=== PATIENT | female | born 1980 | race Caucasian/White ===

== ENCOUNTER 2016-09-14 10:43 | Observation (INO) | payer BC, OTHER ==
[2016-09-14] MEDS ORDERED: SODIUM CHLORIDE 0.9% 1,000 ML IV STA ×2 (11:13)
[2016-09-14] MEDS ORDERED: HYDROmorphone 1 MG/ML 1 ML SYRINGE IVP STA ×2 (11:13→12:45)
[2016-09-14] MEDS ORDERED: METOCLOPRAMIDE 5 MG/ML 2 ML VIAL IVP STA (11:13)
--- NOTE | 2016-09-14 11:22 | ED ---
General Adult HPI - General Chief complaint: Shortness of Breath Stated complaint: LEIGHA, RT SIDE PAIN Time Seen by Provider: 09/14/16 10:58 Source: patient, family Mode of arrival: ambulatory Limitations: no limitations - History of Present Illness Initial comments: Chief complaint and history of present illness this is a 35-year-old female here with his significant other. The patient has been vomiting for 24-48 hours. Now has difficulty breathing with a deep breath increases pain especially to the right upper quadrant. No blood or coffee ground material noted in the vomit. No diarrhea. - Related Data Home Medications Medication Instructions Recorded Confirmed Gabapentin 600 mg PO BID 09/14/16 09/14/16 HYDROcodone/APAP 10-325MG [[place] 1 tab PO Q6H PRN 09/14/16 09/14/16 10-325] Allergies Allergy/AdvReac Type Severity Reaction Status Date / Time sulfamethoxazole Allergy Swelling Verified 09/14/16 12:27 [From Bactrim] trimethoprim [From Bactrim] Allergy Swelling Verified 09/14/16 12:27 Review of Systems ROS Statement: Those systems with pertinent positive or pertinent negative responses have been documented in the HPI. Review of systems no headache or visual acuity changes no sore throat. No neck pain. Patient reports that breathing increases pain. When she splints the right upper quadrant is less discomfort. Denies fever at home. She's had nausea and vomiting which increases the pain. No neuro deficits. All systems are reviewed. Past medical problems biliary colic starting 2 years ago with the . Asthma, GERD, RA, gastritis and ulcers. The patient's surgeries appendectomy. Family history no cancers. Patient has ALLERGIES to sulfa. She does smoke strongly encouraged to not smoke. Denies alcohol use ROS Other: All systems not noted in ROS Statement are negative. Past Medical History Past Medical History: Asthma, GERD/Reflux, Rheumatoid Arthritis (RA) Additional Past Medical History / Comment(s): gastritis, ulcers History of Any Multi-Drug Resistant Organisms: None Reported Past Surgical History: Appendectomy Past Psychological History: No Psychological Hx Reported Smoking Status: Current some day smoker Past Alcohol Use History: None Reported Past Drug Use History: Marijuana General Exam - General Exam Comments Initial Comments: General: The patient is awake and alert, complaining of right upper quadrant pain with breathing. Nausea vomiting for 24 hours. Vital signs temp 98.0 pulse 80 her story rate 18 pulse ox 96% room air blood pressure 158/85 Eye: Pupils are equal, round and reactive to light, extra-ocular movements are intact ; there is normal conjunctiva bilaterally. No signs of icterus. Ears, nose, mouth and throat: There are moist mucous membranes and no oral lesions. Neck: The neck is supple, there is no tenderness , no anterior cervical lymphadenopathy.. Cardiovascular: There is a regular rate and rhythm. No murmur, rub or gallop is appreciated. Respiratory: Lungs are clear to auscultation, respirations are non-labored, faint wheezes. Pain with deep breathing and coughing. Mainly to the right upper quadrant area. Palpation of the ribs does not increased discomfort but splinting the general area of the right upper quadrant does decrease the pain. No rash noted early shingles was discussed. Gastrointestinal: Right upper quadrant discomfort with palpation. There is no tenderness to palpation in the midline. There is no obvious deformity. No rashes noted. Musculoskeletal: Normal ROM, no tenderness, Neurological: No gross or focal neuro deficits. Skin: Skin is warm and dry and no rashes or lesions are noted. Early shingles discussed no rash noted Limitations: no limitations Course Vital Signs 09/14/16 09/14/16 09/14/16 10:47 11:54 12:59 Temperature 98.0 F 98.7 F Pulse Rate 80 63 65 Respiratory 18 20 22 Rate Blood Pressure 158/85 122/63 107/63 O2 Sat by Pulse 96 97 97 Oximetry 09/14/16 09/14/16 09/14/16 13:10 13:20 13:26 Temperature Pulse Rate 95 97 66 Respiratory 20 Rate Blood Pressure 103/55 O2 Sat by Pulse 100 Oximetry 09/14/16 09/14/16 09/14/16 14:26 16:00 17:03 Temperature Pulse Rate 85 76 Respiratory 18 20 Rate Blood Pressure 108/67 117/63 135/68 O2 Sat by Pulse 96 98 Oximetry 09/14/16 09/14/16 18:20 19:08 Temperature Pulse Rate 76 84 Respiratory 20 Rate Blood Pressure 115/63 O2 Sat by Pulse 98 Oximetry Medical Decision Making - Medical Decision Making Medical decision making; patient's white count is 10 hemoglobin 14 hematocrit of 43 the d-dimer normal at 0.45. Potassium 4.5. Urine clean no signs of infection. BUN 8 creatinine 0.69 the GFR greater than 60. Glucose 99.CK 76, MB 0.9 troponin less than 0.012. Chest x-ray is done AP and lateral view and reviewed by radiologist his impression is there is no focal airspace opacity, pleural effusion, or pneumothorax seen. The cardiac silhouette size within normal limits. The osseous structures are intact. Impression; no acute cardiopulmonary process. As read by Dr. Navarro x-ray of the abdomen was done and reviewed by radiologist his impression is nonobstructive bowel gas pattern. As read by Dr. Navarro Ultrasound of the right upper quadrant was done and reviewed by radiologist's his report his liver is enlarged. There is no evidence of stones upper limits of normal in size. Positive evidence for sonographic Royal sign. Combined duct appeared normal. Right kidney no evidence of hydronephrosis or mass. There is no ascites. Impression is borderline gallbladder wall thickening. Findings similar to prior exam. As read by Dr. Navarro [facility] the patient had on-again off-again shortness of breath she describes it may be is an anxiety type attack she was given an updraft for the wheezing she had 2 occasions and Ativan to help her relax. We did discuss chest pain shortness of breath biliary colic etc. The patient be admitted under Dr. Leavitt for further evaluation. - Lab Data Result diagrams: 09/14/16 11:35 09/14/16 11:35 Lab Results 09/14/16 09/14/16 09/14/16 Range/Units 11:35 11:35 11:35 WBC 10.2 (3.8-10.6) k/uL RBC 4.66 (3.80-5.40) m/uL Hgb 14.5 (11.4-16.0) gm/dL Hct 43.2 (34.0-46.0) % MCV 92.7 (80.0-100.0) fL MCH 31.1 (25.0-35.0) pg MCHC 33.5 (31.0-37.0) g/dL RDW 14.2 (11.5-15.5) % Plt Count 281 (150-450) k/uL Neutrophils % 78 % Lymphocytes % 12 % Monocytes % 3 % Eosinophils % 5 % Basophils % 0 % Neutrophils # 8.0 H (1.3-7.7) k/uL Lymphocytes # 1.2 (1.0-4.8) k/uL Monocytes # 0.3 (0-1.0) k/uL Eosinophils # 0.5 (0-0.7) k/uL Basophils # 0.0 (0-0.2) k/uL D-Dimer 0.45 (<0.60) mg/L FEU Sodium 141 (137-145) mmol/L Potassium 4.5 (3.5-5.1) mmol/L Chloride 106 (98-107) mmol/L Carbon Dioxide 23 (22-30) mmol/L Anion Gap 12 mmol/L BUN 8 (7-17) mg/dL Creatinine 0.69 (0.52-1.04) mg/dL Est GFR (MDRD) Af Amer >60 (>60 ml/min/1.73 sqM) Est GFR (MDRD) Non-Af >60 (>60 ml/min/1.73 sqM) Glucose 99 (74-99) mg/dL Calcium 9.6 (8.4-10.2) mg/dL Total Bilirubin 0.5 (0.2-1.3) mg/dL AST 14 (14-36) U/L ALT 23 (9-52) U/L Alkaline Phosphatase 138 H (38-126) U/L Total Creatine Kinase (30-135) U/L CK-MB (CK-2) (0.0-2.4) ng/mL CK-MB (CK-2) Rel Index Troponin I (0.000-0.034) ng/mL Total Protein 7.2 (6.3-8.2) g/dL Albumin 4.2 (3.5-5.0) g/dL Amylase (30-110) U/L Lipase (23-300) U/L Urine Color Urine Appearance (Clear) Urine pH (5.0-8.0) Ur Specific [place] (1.001-1.035) Urine Protein (Negative) Urine Glucose (UA) (Negative) Urine Ketones (Negative) Urine Blood (Negative) Urine Nitrite (Negative) Urine Bilirubin (Negative) Urine Urobilinogen (<2.0) mg/dL Ur Leukocyte Esterase (Negative) Urine RBC (0-5) /hpf Urine WBC (0-5) /hpf Ur Squamous Epith Cells (0-4) /hpf Urine Mucus (None) /hpf 09/14/16 09/14/16 09/14/16 Range/Units 11:35 11:35 11:35 WBC (3.8-10.6) k/uL RBC (3.80-5.40) m/uL Hgb (11.4-16.0) gm/dL Hct (34.0-46.0) % MCV (80.0-100.0) fL MCH (25.0-35.0) pg MCHC (31.0-37.0) g/dL RDW (11.5-15.5) % Plt Count (150-450) k/uL Neutrophils % % Lymphocytes % % Monocytes % % Eosinophils % % Basophils % % Neutrophils # (1.3-7.7) k/uL Lymphocytes # (1.0-4.8) k/uL Monocytes # (0-1.0) k/uL Eosinophils # (0-0.7) k/uL Basophils # (0-0.2) k/uL D-Dimer (<0.60) mg/L FEU Sodium (137-145) mmol/L Potassium (3.5-5.1) mmol/L Chloride (98-107) mmol/L Carbon Dioxide (22-30) mmol/L Anion Gap mmol/L BUN (7-17) mg/dL Creatinine (0.52-1.04) mg/dL Est GFR (MDRD) Af Amer (>60 ml/min/1.73 sqM) Est GFR (MDRD) Non-Af (>60 ml/min/1.73 sqM) Glucose (74-99) mg/dL Calcium (8.4-10.2) mg/dL Total Bilirubin (0.2-1.3) mg/dL AST (14-36) U/L ALT (9-52) U/L Alkaline Phosphatase (38-126) U/L Total Creatine Kinase 76 (30-135) U/L CK-MB (CK-2) 0.7 (0.0-2.4) ng/mL CK-MB (CK-2) Rel Index 0.9 Troponin I <0.012 (0.000-0.034) ng/mL Total Protein (6.3-8.2) g/dL Albumin (3.5-5.0) g/dL Amylase 36 (30-110) U/L Lipase 21 L (23-300) U/L Urine Color Yellow Urine Appearance Clear (Clear) Urine pH 7.5 (5.0-8.0) Ur Specific [place] 1.013 (1.001-1.035) Urine Protein Negative (Negative) Urine Glucose (UA) Negative (Negative) Urine Ketones 3+ H (Negative) Urine Blood Negative (Negative) Urine Nitrite Negative (Negative) Urine Bilirubin Negative (Negative) Urine Urobilinogen <2.0 (<2.0) mg/dL Ur Leukocyte Esterase Trace H (Negative) Urine RBC <1 (0-5) /hpf Urine WBC 1 (0-5) /hpf Ur Squamous Epith Cells 1 (0-4) /hpf Urine Mucus Rare H (None) /hpf Disposition Clinical Impression: Biliary colic, Asthma Disposition: ADMITTED IP TO THIS HOSP Condition: Fair Referrals: Junior Dudley MD [Primary Care Provider] - 1-2 days
[2016-09-14 11:54] LABS: Basophils % (A) 0 %; CH 30.7; CHCM 33.3; Eosinophils # (A) 0.5 k/uL (0-0.7); Eosinophils % (A) 5 %; HCT 43.2 % (34.0-46.0); HDW 2.32; HGB 14.5 gm/dL (11.4-16.0); Luc # (Auto) 0.18; Luc % (Auto) 2; Lymphocytes # (A) 1.2 k/uL (1.0-4.8); Lymphocytes % (A) 12 %; MCH 31.1 pg (25.0-35.0); MCHC 33.5 g/dL (31.0-37.0); MCV 92.7 fL (80.0-100.0); Mean Platelet Volume 7.6; Monocytes # (A) 0.3 k/uL (0-1.0); Monocytes % (A) 3 %; Neutrophils % (A) 78 %; RBC 4.66 m/uL (3.80-5.40); RDW 14.2 % (11.5-15.5); WBC 10.2 k/uL (3.8-10.6); WBC (Perox) 10.45
[2016-09-14 11:56] LABS: Appearance,Urine Clear (Clear); Bilirubin,Urine Negative (Negative); Glucose,Urine (UA) Negative (Negative); Ketones,Urine 3+ (Negative); Leukocyte Esterase,Urine Trace (Negative); Mucus,Urine Rare /hpf; Nitrite,Urine Negative (Negative); PH, Urine 7.5 (5.0-8.0); Particle Count 1691; Protein,Urine Negative (Negative); RBC,Urine <1 /hpf (0-5); Specific Gravity,Urine 1.013 (1.001-1.035); Squamous Epithelial Cell,Urine 1 /hpf (0-4); UA Billing (MACRO vs. MICRO) MICRO; Urobilinogen,Urine <2.0 mg/dL (<2.0); WBC,Urine 1 /hpf (0-5)
[2016-09-14 12:13] LABS: ALT 23 U/L (9-52); AST 14 U/L (14-36); Alkaline Phosphatase 138 U/L (38-126); Anion Gap 12 mmol/L; Blood Urea Nitrogen 8 mg/dL (7-17); Calcium 9.6 mg/dL (8.4-10.2); Carbon Dioxide 23 mmol/L (22-30); Chloride 106 mmol/L (98-107); Glucose 99 mg/dL (74-99); Non-African American GFR(MDRD) >60 (>60 ml/min/1.73 sqM); Potassium 4.5 mmol/L (3.5-5.1); Sodium 141 mmol/L (137-145); Total Bilirubin 0.5 mg/dL (0.2-1.3); Total Protein 7.2 g/dL (6.3-8.2)
--- NOTE | 2016-09-14 12:33 | XR ---
EXAMINATION TYPE: XR chest 2V DATE OF EXAM: 09/14/2016 COMPARISON: NONE HISTORY: Difficulty breathing, cough TECHNIQUE: Frontal and lateral views of the chest are obtained. FINDINGS: There is no focal air space opacity, pleural effusion, or pneumothorax seen. The cardiac silhouette size is within normal limits. The osseous structures are intact. IMPRESSION: No acute cardiopulmonary process.
[2016-09-14] MEDS ORDERED: ONDANSETRON 4 MG/2 ML VIAL IVP STA (12:45)
[2016-09-14] MEDS ORDERED: IPRATROPIUM-ALBUTEROL 3 ML NEB INHALATION STA ×3 (12:47→19:00)
[2016-09-14 12:54] LABS: Amylase 36 U/L (30-110)
--- NOTE | 2016-09-14 13:45 | XR ---
2 view abdomen HISTORY: Right upper quadrant pain 2 views of the abdomen on 3 images correlated to prior abdomen 07 July 2008 Lung bases are clear. There is a slight spinal curvature. No obstruction or pneumoperitoneum. Some re tained fecal debris present within the colon. There are surgical clips over the pelvis. IMPRESSION: Nonobstructive bowel gas pattern.
--- NOTE | 2016-09-14 16:22 | US ---
EXAMINATION TYPE: US abdomen limited DATE OF EXAM: 09/14/2016 COMPARISON: NONE CLINICAL HISTORY: right upper quadrant pain. RUQ pain x 2 days, nausea and vomiting EXAM MEASUREMENTS: Liver Length: 18.7 cm Gallbladder Wall: 0.3 cm CBD: 0.5 cm Right Kidney: 10.6 x 4.1 x 4.5 cm Pancreas: visualized portions appear wnl, head and tail obscured by overlying bowel content Liver: enlarged Gallbladder: no evidence of stones, upper limits of normal in size Evidence for sonographic Royal's sign: yes CBD: appears wnl Right Kidney: no evidence of hydronephrosis or mass There is no ascites. IMPRESSION: Borderline gallbladder wall thickening. Findings similar to prior exam.
[2016-09-14 18:46] LABS: Creatine Kinase 76 U/L (30-135)
[2016-09-14 18:59] LABS: Creatine Kinase MB 0.7 ng/mL (0.0-2.4); Troponin I <0.012 ng/mL (0.000-0.034)
[2016-09-14] MEDS ORDERED: LORazepam 2 MG/ML SYRINGE IV STA (19:07)
[2016-09-14] MEDS ORDERED: LORazepam 2 MG/ML SYRINGE IV PRN (19:27)
[2016-09-14] MEDS ORDERED: NALOXONE 0.4 MG/ML 1 ML VIAL IV PRN (19:27)
[2016-09-14] MEDS ORDERED: ACETAMINOPHEN TAB 325 MG TAB PO PRN (19:27)
[2016-09-14 20:52] VITALS: BMI 28.9
[2016-09-14] MEDS: HYDROmorphone 1 MG/ML 1 ML SYRINGE IV PRN (21:20)
[2016-09-14] MEDS: GABAPENTIN 300 MG CAP PO SCH (21:23)
[2016-09-14] MEDS: FAMOTIDINE 20 MG TAB PO SCH (21:23)
[2016-09-14] MEDS: SODIUM CHLORIDE 0.9% 1,000 ML IV SCH (21:24)
[2016-09-14 23:11] LABS: Creatine Kinase 61 U/L (30-135)
[2016-09-14 23:24] LABS: Troponin I <0.012 ng/mL (0.000-0.034)
[2016-09-15] MEDS: IPRATROPIUM-ALBUTEROL 3 ML NEB INHALATION PRN ×5 (00:12→23:26)
[2016-09-15] MEDS: HYDROmorphone 1 MG/ML 1 ML SYRINGE IV PRN ×5 (02:48→21:34)
[2016-09-15 04:43] LABS: Creatine Kinase 51 U/L (30-135)
[2016-09-15 04:56] LABS: Creatine Kinase MB 0.9 ng/mL (0.0-2.4); Troponin I <0.012 ng/mL (0.000-0.034)
[2016-09-15] MEDS: SODIUM CHLORIDE 0.9% 1,000 ML IV SCH ×2 (08:59→21:33)
[2016-09-15] MEDS: FAMOTIDINE 20 MG TAB PO SCH ×2 (08:59→21:34)
[2016-09-15] MEDS: GABAPENTIN 300 MG CAP PO SCH ×2 (08:59→21:33)
[2016-09-15] MEDS ORDERED: ONDANSETRON 4 MG/2 ML VIAL IVP PRN (13:05)
--- NOTE | 2016-09-15 13:55 | P.HPIM ---
History of Present Illness H&P Date: 09/15/16 Chief Complaint: Shortness of breath This is a 35-year-old female patient being evaluated and examined today on the sixth floor. Patient came into the emergency room with persistent increasing shortness of breath over the last 24-48 hours she also has had some abdominal pain with nausea and vomiting. No blood or coffee ground material noted in the vomit. No diarrhea patient. Patient states that she has had biliary colic over the past 2 years after her . Chest x-ray was performed of both the chest and the abdomen and were both negative. Ultrasound of the right upper quadrant was done patient did have a positive sonographic Royal's sign. There was borderline gallbladder wall thickening. Patient states she also has anxiety and has had exercise-induced asthma since she was a CAD. Her asthma has not been a problem up until this point. Upon examination the patient's resting up in bed on room air, however she did require supplemental oxygen last night briefly. Patient states the breathing treatments haven't been helping her. Patient has no pain at the time of examination. Patient is currently being eating lunch without pain or nausea as well. Review of Systems 14 point review of systems was completed and is negative other than what's noted in the HPI Past Medical History Past Medical History: Asthma, GERD/Reflux, Rheumatoid Arthritis (RA) Additional Past Medical History / Comment(s): gastritis, ulcers History of Any Multi-Drug Resistant Organisms: None Reported Past Surgical History: Appendectomy Past Anesthesia/Blood Transfusion Reactions: No Reported Reaction Past Psychological History: No Psychological Hx Reported Smoking Status: Current some day smoker Past Alcohol Use History: None Reported Past Drug Use History: Marijuana - Past Family History Mother Family Medical History: GERD/Reflux Additional Family Medical History / Comment(s): endometriosis Father Family Medical History: Congestive Heart Failure (CHF), Diabetes Mellitus Additional Family Medical History / Comment(s): etoh Medications and Allergies Home Medications Medication Instructions Recorded Confirmed Type Gabapentin 600 mg PO BID 09/14/16 09/14/16 History HYDROcodone/APAP 10-325MG [[place] 1 tab PO Q6H PRN 09/14/16 09/14/16 History 10-325] Allergies Allergy/AdvReac Type Severity Reaction Status Date / Time sulfamethoxazole Allergy Swelling Verified 09/14/16 12:27 [From Bactrim] trimethoprim [From Bactrim] Allergy Swelling Verified 09/14/16 12:27 Physical Exam Vitals: Vital Signs Temp Pulse Pulse Resp BP BP Pulse Ox 09/15/16 11:35 90 09/15/16 11:25 88 09/15/16 08:28 97.7 F 84 20 143/71 93 L 09/15/16 08:06 94 09/15/16 08:00 20 09/15/16 07:56 92 09/15/16 04:15 96 09/15/16 04:00 97.8 F 100 96 20 108/70 97 09/15/16 02:00 97 09/15/16 00:15 92 09/15/16 00:05 97.9 F 72 20 131/75 98 09/15/16 00:04 92 09/14/16 20:30 97.7 F 84 18 131/73 97 09/14/16 20:15 97.7 F 84 18 131/73 97 09/14/16 19:58 98.1 F 97 18 139/76 96 09/14/16 19:18 88 09/14/16 19:08 84 09/14/16 18:20 76 20 115/63 98 09/14/16 17:03 76 20 135/68 98 09/14/16 16:00 85 18 117/63 96 09/14/16 14:26 108/67 Intake and Output 09/14/16 09/15/16 09/15/16 22:59 06:59 14:59 Intake Total 120 Output Total 300 400 Balance -180 -400 Intake: Oral 120 Output: Urine 300 400 Other: Voiding Method Toilet # Voids 1 Weight 83.7 kg GENERAL EXAM: Alert, active, comfortable in no apparent distress. HEAD: Normocephalic. EYES: Normal reaction of pupils, equal size. NOSE: Clear with pink turbinates. THROAT: No erythema or exudates. NECK: No masses, no JVD. CHEST: No chest wall deformity. LUNGS: Lung sounds noted to be coarse throughout patient has inspiratory and expiratory wheezing bilaterally. CVS: S1 and S2 normal with no audible mumurs, regular rhythm. ABDOMEN: No hepatosplenomegaly, normal bowel sounds, no guarding or rigidity. EXTREMITIES: No edema noted, pedal pulses palpable. SKIN: No rashes CENTRAL NERVOUS SYSTEM: No focal deficits, tone is normal in all 4 extremities. Results CBC & Chem 7: 09/14/16 11:35 09/14/16 11:35 Chest x-ray: report reviewed Abdominal x-ray: report reviewed Thrombosis Risk Factor Assmnt - DVT/VTE Prophylaxis DVT/VTE Prophylaxis: Low risk, early ambulation encouraged - Choose All That Apply Any of the Below Risk Factors Present?: Yes Each Factor Represents 1 point: Oral contraceptives or hormone replacement therapy Other Risk Factors: No Other congenital or acquired thrombophilia - If yes, enter type in comment: No Thrombosis Risk Factor Assessment Total Risk Factor Score: 1 Thrombosis Risk Factor Assessment Level: Low Risk Assessment and Plan Plan: Assessment Acute exacerbation of chronic persistent asthma Acute hypoxic respiratory failure Biliary colic Anxiety Nausea Plan Medications have been reviewed and will be continued as ordered. Continue with pulmonary hygiene, coughing and deep breathing exercises, and supportive care. Supplemental oxygen to maintain oxygen saturations of 92% or better. Continue nebulizer treatments, we will add budesonide to the current treatment. We'll put the patient on IV steroids. Patient will be given Zofran as needed for intermittent nausea. Incentive spirometer initiated and encouraged. GI and DVT prophylaxis. We will continue to monitor labs/results and adjust treatment as necessary. Further recommendations pending. I performed an examination of the patient and discussed their management with the nurse practitioner. I have reviewed the nurse practitioner's note and agree with the documented findings and plan of care.
[2016-09-15] MEDS: FLUCONAZOLE 150 MG TAB PO SCH (15:52)
[2016-09-15] MEDS: NYSTATIN 100,000UNIT/GM CREAM 30 GM TUBE TOPICAL SCH ×2 (15:52→21:37)
[2016-09-15] MEDS: methylPREDNISolone SOD SUCCI 40 MG/ML 1 ML VIAL IV SCH ×2 (15:52→23:05)
[2016-09-15] MEDS: IPRATROPIUM-ALBUTEROL 3 ML NEB INHALATION SCH ×2 (16:13→19:15)
[2016-09-15] MEDS: BUDESONIDE 1 MG/2 ML NEBU INHALATION SCH (19:13)
[2016-09-16] MEDS: HYDROmorphone 1 MG/ML 1 ML SYRINGE IV PRN ×3 (01:35→09:25)
[2016-09-16] MEDS: IPRATROPIUM-ALBUTEROL 3 ML NEB INHALATION PRN (03:30)
[2016-09-16 06:52] LABS: Basophils % (A) 0 %; CH 30.5; CHCM 33.2; Eosinophils % (A) 0 %; HDW 2.42; Luc # (Auto) 0.02; Luc % (Auto) 0; Lymphocytes # (A) 0.7 k/uL (1.0-4.8); Lymphocytes % (A) 6 %; MCH 30.8 pg (25.0-35.0); MCHC 33.3 g/dL (31.0-37.0); MCV 92.6 fL (80.0-100.0); Mean Platelet Volume 7.5; Monocytes # (A) 0.2 k/uL (0-1.0); Monocytes % (A) 1 %; Neutrophils # (A) 10.4 k/uL (1.3-7.7); Neutrophils % (A) 92 %; RBC 4.21 m/uL (3.80-5.40); RDW 14.1 % (11.5-15.5); WBC 11.3 k/uL (3.8-10.6); WBC (Perox) 11.81
[2016-09-16] MEDS: BUDESONIDE 1 MG/2 ML NEBU INHALATION SCH (07:04)
[2016-09-16] MEDS: IPRATROPIUM-ALBUTEROL 3 ML NEB INHALATION SCH ×2 (07:04→11:16)
[2016-09-16 07:09] LABS: ALT 17 U/L (9-52); AST 12 U/L (14-36); Alkaline Phosphatase 115 U/L (38-126); Anion Gap 11 mmol/L; Blood Urea Nitrogen 8 mg/dL (7-17); Calcium 9.5 mg/dL (8.4-10.2); Carbon Dioxide 20 mmol/L (22-30); Chloride 111 mmol/L (98-107); Glucose 159 mg/dL (74-99); Non-African American GFR(MDRD) >60 (>60 ml/min/1.73 sqM); Potassium 4.2 mmol/L (3.5-5.1); Sodium 142 mmol/L (137-145); Total Bilirubin 0.3 mg/dL (0.2-1.3); Total Protein 7.2 g/dL (6.3-8.2)
[2016-09-16 07:11] VITALS: BP 151/90; RESP 16; TEMP 97.8
[2016-09-16] MEDS: FAMOTIDINE 20 MG TAB PO SCH (08:22)
[2016-09-16] MEDS: NYSTATIN 100,000UNIT/GM CREAM 30 GM TUBE TOPICAL SCH (08:22)
[2016-09-16] MEDS: methylPREDNISolone SOD SUCCI 40 MG/ML 1 ML VIAL IV SCH (08:22)
[2016-09-16] MEDS: GABAPENTIN 300 MG CAP PO SCH (08:22)
[2016-09-16] MEDS: FLUCONAZOLE 150 MG TAB PO SCH (08:22)
[2016-09-16 11:27] VITALS: PULSE 92
--- NOTE | 2016-09-16 14:27 | P.DS ---
Providers Date of admission: 09/14/16 19:27 Attending physician: Spencer Leavitt Primary care physician: Junior Jimenezhven [facility] Course: This is a 35-year-old female patient being evaluated and examined today on the sixth floor. Patient came into the emergency room with persistent increasing shortness of breath over the last 24-48 hours she also has had some abdominal pain with nausea and vomiting. No blood or coffee ground material noted in the vomit. No diarrhea patient. Patient states that she has had biliary colic over the past 2 years after her . Chest x-ray was performed of both the chest and the abdomen and were both negative. Ultrasound of the right upper quadrant was done patient did have a positive sonographic Royal's sign. There was borderline gallbladder wall thickening. Patient states she also has anxiety and has had exercise-induced asthma since she was a CAD. Her asthma has not been a problem up until this point. Upon examination the patient's resting up in bed on room air, has not required any supplemental oxygen in over 24 hours. Breathing is better. Patient states the breathing treatments haven't been helping her. Patient has no pain at the time of examination. Patient is currently being eating lunch without pain or nausea as well. Patient requesting discharge. Patient given written scripts for steroids, nebulizer machine and rescue in [facility]. Pertinent Studies: ABD US, ABD xray, Chest Xray Patient Condition at Discharge: Stable Plan - Discharge Summary New Discharge Prescriptions: Budesonide [Pulmicort] 0.5 mg INHALATION BID #90 neb Fluconazole [Diflucan] 150 mg PO DAILY #3 tab Ipratropium-Albuterol Nebulize [Duoneb 0.5 mg-3 mg/3 ml Soln] 3 ml INHALATION RT -QID #120 neb Discharge Medication List Gabapentin 600 mg PO BID 09/14/16 [History] HYDROcodone/APAP 10-325MG [[place] 10-325] 1 tab PO Q6H PRN 09/14/16 [History] Acetaminophen Tab [Tylenol] 650 mg PO Q6HR PRN tab 09/16/16 [Rx] Budesonide [Pulmicort] 0.5 mg INHALATION BID #90 neb 09/16/16 [Rx] Fluconazole [Diflucan] 150 mg PO DAILY #3 tab 09/16/16 [Rx] Ipratropium-Albuterol Nebulize [Duoneb 0.5 mg-3 mg/3 ml Soln] 3 ml INHALATION RT -QID #120 neb 09/16/16 [Rx] Nystatin 100,000Unit/gm Cream [Mycostatin Cream] 1 applic TOPICAL TID dose [Rx] Follow up Appointment(s)/Referral(s): Junior Dudley MD [Primary Care Provider] - 1-2 days Spencer Leavitt MD [STAFF PHYSICIAN] - 1 Week
== END 2016-09-16 15:07 | disposition home or self-care (01) ==
LOC: EC 10:43 → 6PED 19:27 → 3SUR 09-15 17:07
PROVIDERS: ADMIT Internal Medicine Sleep Medicine; ATTEND Internal Medicine Sleep Medicine
DX: J45.990 Exercise induced bronchospasm (principal); J96.01 Acute respiratory failure with hypoxia; K21.9 Gastro-esophageal reflux disease without esophagitis; M06.9 Rheumatoid arthritis, unspecified; F17.200 Nicotine dependence, unspecified, uncomplicated; K80.50 Calculus of bile duct without cholangitis or cholecystitis without obstruction; Z79.899 Other long term (current) drug therapy; Z88.2 Allergy status to sulfonamides; Z82.49 Family history of ischemic heart disease and other diseases of the circulatory system; F41.9 Anxiety disorder, unspecified
CPT/HCPCS: 96376 ×4; 96361 ×3; 96375 ×2; 96374; 99285; 36415; 94640 ×6; 94760; 93005; 85379; 80053 ×2; 82150; 82550 ×2; 82553 ×2; 83690; 84484 ×2; 85025 ×2; 81001; 71020; 74020; 76705; G0378 ×3; J2060; J2765; J2920 ×2; J2405; J1170 ×3

== ENCOUNTER → 2022-02-18 | Day surgery (SDC) | payer BC, OTHER ==
--- NOTE | 2022-02-18 16:05 | USB ---
Reason for Exam: Extent of disease. Risk Values: [place]ree 5 year model risk: 0.3%. NCI Lifetime model risk: 6.7%. Technique: Method: Whole Breast Handheld. Findings: The whole breast of the left breast, the axilla of the left breast and the retroareolar of the left breast were scanned. A complete US of all four quadrants of the breast, axilla, and retro-areolar region were reviewed. Only the targeted 1:00 palpable site was scanned at the outside facility. For biopsy planning purposes, a whole breast ultrasound was performed. At the axillary tail, two abnormally enlarged, adjacent and thickened lymph nodes are present measuring up to 1.6 x 1.1 cm with complete replacement of the fatty hilum. At the 11:00 position located deep, 12 cm from the nipple, there is a 7 x 6 x 6 mm suspicious hypoechoic lesion with subtle shadowing. Likely mammographic correlate. At the 1:00 palpable site, 13 cm from the nipple, there is a irregular hypoechoic mass measuring 1.7 x 1.5 x 1.2 cm with angular margins and echogenic halo and some adjacent vascularity. 3 site biopsy will be recommended. A fourth potential area medially in the left breast on outside mammogram has no sonographic correlate. Overall Assessment: Highly suggestive of malignancy, BI-RAD 5 Management: Ultrasound Core Biopsy of the left breast. 3 site biopsy. After results, potential fourth site may need to be targeted to the 9:00 position of the left breast. Electronically signed and approved by: Carlos Guillaume M.D. Radiologist
== END ==
LOC: RADUSWWP 12:35
PROVIDERS: ATTEND Surgery
DX: C50.212 Malignant neoplasm of upper-inner quadrant of left female breast (principal); C77.9 Secondary and unspecified malignant neoplasm of lymph node, unspecified
CPT/HCPCS: 77065; 19083; 19084; 76641; A4648; 88305

== ENCOUNTER → 2022-03-06 | Outpatient (CLI) | payer BC ==
[2022-03-06 15:41] VITALS: RESP 18
--- NOTE | 2022-03-06 15:48 | P.GSHP ---
History of Present Illness H&P Date: 03/06/22 Chief Complaint: left breast invasive ductal cancer Radha is a 41 year old female seen in consultation for Casandra Arteaga regarding a left breast mass. Radha noted a lump in her left breast up proximally January 02. She subsequently underwent a bilateral mammogram on [id number]. This revealed a lesion in the left breast at the site of palpable abnormality as well as in the upper inner posterior left breast a 1 and 1.2 cm ill-defined defined additional density. The left axillary lymph nodes were slightly prominent measuring up to 2 cm. No lesions of concern were noted in the right breast. An ultrasound was performed which revealed 2 lesions in the left breast for which biopsy was recommended. The 3 areas biopsied on the left. This was done on [id number]. The lesion at 11:00 in the left breast revealed a fibroadenoma. the lesion at 1:00 in the left breast revealed an invasive moderately differentiated ductal carcinoma grade 2, the lesion in the left axilla revealed a lymph node which did show metastatic carcinoma consistent with a ductal primary. She has not had any trauma or infection of the breast. She's never had any surgery on her breast. She does not feel any other lumps masses or nodules of concern. Caffeine: 1 pot/day, pop nicotine: 1/2 PPD since chocolate: daily BCP: 3-4 years Family history: paternal grandmother: breast cancer paternal great aunt: breast cancer paternal aunt: breast cancer paternal aunt: breast cancer Hormonal History: menarche: 13 , breast fed: no, age at first : 26 periods regular; LMP: now Surgical history: appy Medical History: Fibromyalgia daily uses Lyrica asthma exercise induced arthritis Social history: Nicotine: Half a pack per day since Alcohol: Negative Drugs: Marijuana weekly for relaxation - Constitutional Constitutional: Denies chills, Denies fever - EENT Eyes: denies blurred vision, denies pain Ears: deny: decreased hearing, tinnitus Ears, nose, mouth and throat: Reports headache, Reports sore throat - Breasts Breasts: bilateral: as per HPI - Cardiovascular Cardiovascular: Denies chest pain, Denies shortness of breath - Respiratory Respiratory: Denies cough, Denies 7 - Gastrointestinal Comment: PUD 12 years ago Gastrointestinal: Denies abdominal pain, Denies diarrhea, Denies nausea, Denies vomiting - Genitourinary (Female) Genitourinary: Denies dysuria, Denies hematuria - Menstruation Menstruation: Reports period normal - Musculoskeletal Comment: fibromyalgia - Integumentary Integumentary: Denies pruritus, Denies rash - Neurological Neurological: Denies numbness, Denies weakness - Psychiatric Psychiatric: Denies anxiety, Denies depression - Endocrine Endocrine: Reports fatigue, Denies weight change - Hematologic/Lymphatic Comment: none - Allergic/Immunologic Allergic/Immunologic: Reports seasonal allergies Past Medical History Past Medical History: Asthma, GERD/Reflux, Rheumatoid Arthritis (RA) Additional Past Medical History / Comment(s): gastritis, ulcers History of Any Multi-Drug Resistant Organisms: None Reported Past Surgical History: Appendectomy Past Anesthesia/Blood Transfusion Reactions: No Reported Reaction Past Psychological History: No Psychological Hx Reported Smoking Status: Current every day smoker Past Alcohol Use History: None Reported Past Drug Use History: Marijuana, Opiates Additional Drug Use History / Comment(s): Hx of opiate use, currently on Suboxone for 2 years. - Past Family History Mother Family Medical History: GERD/Reflux Additional Family Medical History / Comment(s): endometriosis Father Family Medical History: Congestive Heart Failure (CHF), Diabetes Mellitus Additional Family Medical History / Comment(s): etoh Medications and Allergies Home Medications Medication Instructions Recorded Confirmed Type Ipratropium-Albuterol Nebulize 3 ml INHALATION RT-QID #120 neb 09/16/16 02/12/22 Rx [Duoneb 0.5 mg-3 mg/3 ml Soln] Buprenorphine HCl/Naloxone HCl 1 film SL BID 02/12/22 02/12/22 History [Suboxone 8 mg-2 mg Sl Film] Loratadine [Claritin] 10 mg PO DAILY 02/12/22 02/12/22 History Pregabalin [Lyrica] 200 mg PO TID 02/12/22 02/12/22 History Allergies Allergy/AdvReac Type Severity Reaction Status Date / Time sulfamethoxazole Allergy Swelling Verified 02/12/22 08:30 [From Bactrim] trimethoprim [From Bactrim] Allergy Swelling Verified 02/12/22 08:30 Surgical - Exam - General no distress - Eyes normal ocular movement - Neck trachea midline - Respiratory normal respiratory effort - Cardiovascular Rhythm: regular Heart Sounds: normal: S1, S2 - Abdomen Abdomen: soft, non tender, no guarding, no rigid, no rebound - Integumentary normal turgor - Neurologic no disoriented, no combative - Musculoskeletal normal gait, normal posture - Psychiatric oriented to time, oriented to person, oriented to place, speech is normal, memory intact Breast Exam: BRA: 38G inspection: Grade 2/3 ptosis Palpation: Right breast: Multiple positional exam fibrocystic changes no dominant masses or nodules of concern Right axilla: No adenopathy of concern Left breast: Multi-positional exam nodularity at 11:00/is was biopsy site consistent with fibroadenoma, nodularity at 1:00 approximately 1.5 cm in size consistent with invasive ductal carcinoma on biopsy otherwise no dominant masses or nodules of concern fibrocystic changes Left axilla: Adenopathy noted Results Mammogram and ultrasound reviewed personally Assessment and Plan Assessment: Impression: Invasive ductal carcinoma left breast 1.2 cm in size, positive lymph node, ER/SC positive HER-2/beth negative grade 2 Fibromyalgia Exercise-induced asthma Plan: Presentation of case at tumor board We'll discuss in detail with the patient, her , her mother, entered daughter treatment options CC: Casandra Arteaga
== END | disposition home or self-care (01) ==
LOC: WWCWWP 15:18
PROVIDERS: ATTEND Surgery
DX: Z53.9 Procedure and treatment not carried out, unspecified reason (principal)

== ENCOUNTER → 2022-03-17 | Outpatient (CLI) | payer BC ==
--- NOTE | 2022-03-18 07:40 | BMR ---
EXAMINATION TYPE: MR breast BILAT wo/w con DATE OF EXAM: 03/17/2022 COMPARISON: Outside 3-D mammogram February 04, 2022 and diagnostic left breast ultrasound BI-RADS 5 HISTORY: Left breast cancer on ultrasound-guided core biopsy February 18, 2022. Invasive moderately di fferentiated ductal carcinoma 1:00 lesion. Lymph node positive for metastatic carcinoma and axillary lymph node biopsy. TECHNIQUE: A series of fat and water weighted images in the long and short axis views of both breasts are obtained in conjunction with dynamic contrast MRI with subtraction technique. The patient was i njected with 9 mL intravenous Gadavist gadolinium contrast. Three-dimensional and additional postpr ocessing imaging is created on independent workstation and reviewed during official interpretation of this study. FINDINGS: Scattered fibroglandular tissue bilaterally is redemonstrated. Abnormal left axillary lymph nodes are identified corresponding to patient's history with at least 3 suspicious lymph nodes ident ified. No suspicious right axillary adenopathy is seen. T2 and STIR weighted images show no significa nt focal fluid collections. Dynamic postcontrast imaging shows mild background enhancement. There is however motion artifact making evaluation slightly suboptimal. In the anterior portion of the right breast centrally slightly inferior aspect there is an enhancing spiculated 1.4 x 1.0 x 1.2 cm area of concern likely just above the nipple 12:00 position that warran ts further workup. No abnormal skin thickening is seen. Chest wall is intact. Biopsy proven malignancy in the posterior depth left breast upper outer aspect with artifact from bio psy clip is identified. There is irregular enhancement measuring up to 4.6 cm anterior to posterior d imension at this level identified. This is more prominent than detected on ultrasound with biopsy cli p along posterior portion of the area of concern on MRI. This is near same level of the abnormal biop sy proven left axillary lymph node measuring 2.5 x 1.6 cm. Artifact from biopsy clip in the fibroaden surya likely present image 125 series 401 small foci of enhancement this level identified. No abnormal skin thickening. Chest wall is intact. IMPRESSION: Biopsy-proven malignancy left breast with abnormal left axillary adenopathy is demonstrat ed on MRI. Area of concern right breast noted. BI-RADS 6 biopsy-proven malignancy left breast. BI-RADS 4 suspicious lesion right breast. Recommendation: Targeted ultrasound right breast to further evaluate area of MRI concern. Appropriate surgical and oncologic management of left breast neoplasm.
== END | disposition home or self-care (01) ==
LOC: RADMRIMAIN 08:30
PROVIDERS: ATTEND Surgery
DX: C50.412 Malignant neoplasm of upper-outer quadrant of left female breast (principal); R59.0 Localized enlarged lymph nodes
CPT/HCPCS: 77049; A9585

== ENCOUNTER → 2022-03-29 | Outpatient (CLI) | payer BC ==
--- NOTE | 2022-03-29 09:36 | PE ---
EXAMINATION TYPE: PET CT fusion skull to thigh DATE OF EXAM: 03/29/2022 COMPARISON: MRI bilateral breasts March 17, 2022 HISTORY: Newly diagnosed left-sided breast cancer. TECHNIQUE: Following the intravenous administration of 10.36 mCi of F-18 FDG, whole body images are performed from the skull base to the midthigh. Images are reviewed on the computer in the coronal, a xial, and sagittal planes. Reconstructed rotating images are created on independent workstation and reviewed on the computer. A localization and attenuation correction CT is performed in conjunction with the PET scan. Blood glucose level equals 82. SCAN: Initial Scan FINDINGS: SKULL BASE AND NECK: No areas of abnormal hypermetabolic uptake. CHEST, MEDIASTINUM, AND HILAR REGION: Enlarged left axillary lymph nodes redemonstrated without abnor mal hypermetabolic uptake. No abnormal hypermetabolic uptake in the biopsy-proven malignancy posterio r upper outer left breast near axial image 78. No abnormal hypermetabolic uptake in the right breast or axilla. No abnormal hypermetabolic uptake in the thorax. ABDOMEN AND PELVIS: Normal excretion. No abnormal hypermetabolic uptake. OSSEOUS STRUCTURES: No abnormal hypermetabolic uptake. OTHER CT: Surgical changes from appendectomy seen at base of cecum. IMPRESSION: No abnormal hypermetabolic masses to suggest metastatic malignancy. Known left breast taz plasm and left axillary adenopathy seen better on recent breast MRI versus PET/CT due to lack of sign ificant hypermetabolic uptake.
== END | disposition home or self-care (01) ==
LOC: RADPETMAIN 07:29
PROVIDERS: ATTEND Internal Medicine Hematology & Oncology
DX: C50.412 Malignant neoplasm of upper-outer quadrant of left female breast (principal); R59.0 Localized enlarged lymph nodes
CPT/HCPCS: 78815; A9552

== ENCOUNTER → 2022-04-03 | Day surgery (SDC) | payer BC ==
--- NOTE | 2022-04-08 15:08 | MM ---
Reason for Exam: Post Procedure Mammogram. Patient History: Breast cancer, left, age 41. 02/18/2022, Malignant US biopsy breast VAD LT on the left side. 02/18/2022, US biopsy breast add'l VAD LT on the Left side. 02/18/2022, US biopsy breast add'l VAD LT on the Left side. Prior Study Comparison: 02/18/2022 Left MG diagnostic mammo LT wo CAD., [facility]. 03/17/2022 Bilateral MR breast bilat wo/w con, [facility]. Tissue Density: Right: The breast tissue is heterogeneously dense. This may lower the sensitivity of mammography. Pathology Description: Location: 11 o'clock. Marker Left Behind. Needle Type: Mammotome Cores: 6 Skin Nicks: 1 Gauge: 13 The procedure of ultrasound guided core biopsy was explained to the patient. Benefits, alternatives, and risks were discussed. An informed consent was then obtained. A timeout was performed. The patient was placed in supine positioning for imaging and for the procedure. The overlying skin was prepped and draped in usual sterile fashion. Lidocaine was used as anesthetic into the skin and subcutaneous tissue up to area of concern in the right breast. A small skin rodri was made with surgical scalpel. Under ultrasound guidance, a 12-gauge vacuum assisted biopsy gun device was used to obtain 6 core samples. A biopsy clip was left in lesion. Hydromark coil core marker was placed. The patient tolerated the procedure well without any immediate complication. The patient was kept in the radiology department for short stay after the procedure and then discharged home in stable condition. Postprocedure mammogram: The patient was transferred to mammography for physician ordered post procedure mammogram for clip placement verification. Clip is within the expected region of the biopsy. Impression: Successful ultrasound guided core biopsy of area of concern in the right breast, full pathology results to follow. Recommendations: 1. Recommendations are pending pathology results. Pathology Results: Result: Malignant, Invasive mammary carcinoma. RIGHT BREAST, 11:00 POSITION, ULTRASOUND GUIDED CORE BIOPSY: Invasive moderately differentiated mammary carcinoma, grade 2, with focal DCIS (see surgical pathology cancer case summary and comment). Overall Assessment: Malignant Assessment: MG diagnostic mammo RT wo CAD - Right: Known biopsy proven malignancy, BI-RAD 6. Management: Surgical Consultation of the right breast. Electronically signed and approved by: Alejo Gastelum D.O. [facility]
== END ==
LOC: RADUSWWP 14:32
PROVIDERS: ATTEND Surgery
DX: C50.411 Malignant neoplasm of upper-outer quadrant of right female breast (principal)
CPT/HCPCS: 88305; 88342; 88341; 77065; 19083; A4648

== ENCOUNTER → 2022-04-26 | Outpatient (CLI) | payer BC ==
[2022-04-26 12:33] LABS: African American GFR (CKD) >90 (>60 ml/min/1.73 sqM); Blood Urea Nitrogen 16 mg/dL (7-17); Non-African American GFR(CKD) >90 (>60 ml/min/1.73 sqM)
--- NOTE | 2022-04-26 14:25 | CT ---
EXAMINATION TYPE: CT ChestAbdPelvis w con DATE OF EXAM: 04/26/2022 INDICATION: Breast cancer COMPARISON: 03/29/2022 PET/CT CT DLP: 1941 mGycm CONTRAST: Performed with Oral Contrast and with IV Contrast, patient injected with 70 mL of Isovue 300. TECHNIQUE: Axial images at 5 mm thick sections. Reconstructed images in the coronal plane. Delayed images through the kidneys. FINDINGS: CT CHEST: Portion of the thyroid visualized is normal. No suspicious lung nodules or focal infiltrates are present. There is a 1.6 cm left axillary lymph node. Additional shotty lymphadenopathy on the left is present. There is a 1.0 cm hypodensity within the right suprahilar region could be a borderline sized lymph n ode. Lack of intravenous contrast limits evaluation of the mediastinum for adenopathy. The ascending aorta diameter at the level of the main pulmonary artery is 3.0 cm. The main pulmonary artery diameter at the bifurcation is 2.[address] ABDOMEN: Liver: Normal Spleen: Normal Pancreas: Normal Adrenal glands: The adrenal glands are normal. Gallbladder: Normal Kidneys: No masses are evident. No hydronephrosis is present. No cysts are present. No renal stone s are evident. Aorta: Normal. Inferior vena cava: Normal. CT PELVIS: Loops of bowel within the abdomen and pelvis are normal. Fecal debris is within the colon. Oral co ntrast extends to the distal small bowel loops. Appendix: Not identified. No dilated tubular structure inflammatory changes evident. Urinary bladder: Normal. Genitourinary structures: Uterus is unremarkable. Adnexa are normal. Osseous structures: No suspicious lytic or sclerotic lesions. IMPRESSIONS: 1. Prominent mediastinal adenopathy. This is not evident on the comparison PET/CT images of interval change. Suspicious uptake on PET/CT in this region is not identified.
== END | disposition home or self-care (01) ==
LOC: RADCTMAIN 11:46
PROVIDERS: ATTEND Internal Medicine Hematology & Oncology
DX: C50.412 Malignant neoplasm of upper-outer quadrant of left female breast (principal); R59.0 Localized enlarged lymph nodes; M12.9 Arthropathy, unspecified; R51.9 Headache, unspecified; Z17.0 Estrogen receptor positive status [ER+]
CPT/HCPCS: 82565; 84520; 71260; 74177; 36415; Q9967

== ENCOUNTER → 2022-05-03 | Outpatient (CLI) | payer SELFPAY ==
--- NOTE | 2022-04-11 12:31 | P.PN ---
Progress Note - Text Progress Note Date: 04/11/22 I have called the patient with her BRCA2 mutation results. At this time she is following with Dr. Alejandra on May 19 and has a CAT scan scheduled to rule out metastatic disease at that time also. She would like to postpone her appointment here until the middle of April. This is going to be scheduled. She is also considering a bilateral mastectomy after knowing that she is BRCA2 positive.
[2022-05-03 09:42] VITALS: BP 131/91; PULSE 64; RESP 17; TEMP 98.7
--- NOTE | 2022-05-03 10:14 | P.PN ---
Subjective Progress Note Date: 05/03/22 Principal diagnosis: bilateral invasive lobular breast cancer History of Present Illness H&P Date: 03/06/22 Chief Complaint: left breast invasive ductal cancer Radha is a 41 year old female seen in consultation for Casandra Arteaga regarding a left breast mass. Radha noted a lump in her left breast up proximally January 02. She subsequently underwent a bilateral mammogram on 10160523. This revealed a lesion in the left breast at the site of palpable abnormality as well as in the upper inner posterior left breast a 1 and 1.2 cm ill-defined defined additional density. The left axillary lymph nodes were slightly prominent measuring up to 2 cm. No lesions of concern were noted in the right breast. An ultrasound was performed which revealed 2 lesions in the left breast for which biopsy was recommended. The 3 areas biopsied on the left. This was done on [id number]. The lesion at 11:00 in the left breast revealed a fibroadenoma. the lesion at 1:00 in the left breast revealed an invasive mo derately differentiated ductal carcinoma grade 2, the lesion in the left axilla revealed a lymph node which did show metastatic carcinoma consistent with a ductal primary. She has not had any trauma or infection of the breast. She's never had any surgery on her breast. She does not feel any other lumps masses or nodules of concern. Genetic testing: a variant of BRCA2 Breast MRI leading to a right breast biopsy right breast biopsy: invasive lobular cancer; left breast invasive ductal cancer + node Note 04-03-22 Dr. Alejandra reviewed PET CT no specific mets/ CT chest abd and pelvis reviewed oncotype score: 23 Caffeine: 1 pot/day, pop nicotine: 1/2 PPD since chocolate: daily BCP: 3-4 years Family history: paternal grandmother: breast cancer paternal great aunt: breast cancer paternal aunt: breast cancer paternal aunt: breast cancer Hormonal History: menarche: 13 , breast fed: no, age at first : 26 periods regular; LMP: now Surgical history: appy Medical History: Fibromyalgia daily uses Lyrica asthma exercise induced arthritis Social history: Nicotine: Half a pack per day since Alcohol: Negative Drugs: Marijuana weekly for relaxation - Constitutional Constitutional: Denies chills, Denies fever - EENT Eyes: denies blurred vision, denies pain Ears: deny: decreased hearing, tinnitus Ears, nose, mouth and throat: Reports headache, Reports sore throat - Breasts Breasts: bilateral: as per HPI - Cardiovascular Cardiovascular: Denies chest pain, Denies shortness of breath - Respiratory Respiratory: Denies cough, Denies 7 - Gastrointestinal Comment: PUD 12 years ago Gastrointestinal: Denies abdominal pain, Denies diarrhea, Denies nausea, Denies vomiting - Genitourinary (Female) Genitourinary: Denies dysuria, Denies hematuria - Menstruation Menstruation: Reports period normal - Musculoskeletal Comment: fibromyalgia - Integumentary Integumentary: Denies pruritus, Denies rash - Neurological Neurological: Denies numbness, Denies weakness - Psychiatric Psychiatric: Denies anxiety, Denies depression - Endocrine Endocrine: Reports fatigue, Denies weight change - Hematologic/Lymphatic Comment: none - Allergic/Immunologic Allergic/Immunologic: Reports seasonal allergies Past Medical History Past Medical History: Asthma, GERD/Reflux, Rheumatoid Arthritis (RA) Additional Past Medical History / Comment(s): gastritis, ulcers History of Any Multi-Drug Resistant Organisms: None Reported Past Surgical History: Appendectomy Past Anesthesia/Blood Transfusion Reactions: No Reported Reaction Past Psychological History: No Psychological Hx Reported Smoking Status: Current every day smoker Past Alcohol Use History: None Reported Past Drug Use History: Marijuana, Opiates Additional Drug Use History / Comment(s): Hx of opiate use, currently on Suboxone for 2 years. - Past Family History Mother Family Medical History: GERD/Reflux Additional Family Medical History / Comment(s): endometriosis Father Family Medical History: Congestive Heart Failure (CHF), Diabetes Mellitus Additional Family Medical History / Comment(s): etoh Medications and Allergies Home Medications Medication Instructions Recorded Confirmed Type Ipratropium-Albuterol Nebulize 3 ml INHALATION RT-QID #120 neb 09/16/16 02/12/22 Rx [Duoneb 0.5 mg-3 mg/3 ml Soln] Buprenorphine HCl/Naloxone HCl 1 film SL BID 02/12/22 02/12/22 History [Suboxone 8 mg-2 mg Sl Film] Loratadine [Claritin] 10 mg PO DAILY 02/12/22 02/12/22 History Pregabalin [Lyrica] 200 mg PO TID 02/12/22 02/12/22 History Allergies Allergy/AdvReac Type Severity Reaction Status Date / Time sulfamethoxazole Allergy Swelling Verified 02/12/22 08:30 [From Bactrim] trimethoprim [From Bactrim] Allergy Swelling Verified 02/12/22 08:30 Objective - Vital Signs Vital signs: Vital Signs Temp 98.7 F 05/03/22 09:34 Pulse 64 05/03/22 09:34 Resp 17 05/03/22 09:34 BP 131/91 05/03/22 09:34 Pulse Ox 98 05/03/22 09:34 FiO2 Intake & Output 05/02/22 05/03/22 05/03/22 18:59 06:59 18:59 Weight 99.79 kg - Constitutional General appearance: Present: cooperative - EENT Eyes: Present: EOMI ENT: Present: hearing grossly normal - Neck Neck: Present: normal ROM - Respiratory Respiratory: bilateral: CTA - Cardiovascular Rhythm: regular Heart sounds: normal: S1, S2 - Gastrointestinal General gastrointestinal: Present: soft - Integumentary Integumentary: Present: normal turgor - Musculoskeletal Musculoskeletal: Present: gait normal - Psychiatric Psychiatric: Present: A&O x's 3, appropriate affect, intact judgment & insight - Additional findings Additional findings: Breast Exam: BRA: 38G inspection: Grade 2/3 ptosis Palpation: Right breast: Multiple positional exam fibrocystic changes no dominant masses or nodules of concern Right axilla: No adenopathy of concern Left breast: Multi-positional exam nodularity at 11:00/is was biopsy site consistent with fibroadenoma, nodularity at 1:00 approximately 1.5 cm in size consistent with invasive ductal carcinoma on biopsy otherwise no dominant masses or nodules of concern fibrocystic changes Left axilla: Adenopathy noted Assessment and Plan Assessment: Impression: Right breast invasive lobular carcinoma Left breast invasive ductal carcinoma with positive lymph nodes PET scan no evidence of metastatic disease Genetic testing heterozygous variant of BRCA2 gene Oncotype [address] had a CT chest abdomen and pelvis to further evaluate for metastatic disease Plan: At this time the patient is feeling that she would not like to have neoadjuvant chemotherapy, with recurrence score of 23 the benefit may be marginal. She will most likely have bilateral mastectomy bilateral sentinel node biopsy, left axillary node resection Bilateral reconstruction Appointment with plastic surgery CC: Casandra Arteaga
== END ==
LOC: WWCWWP 09:02
PROVIDERS: ATTEND Surgery
DX: C50.212 Malignant neoplasm of upper-inner quadrant of left female breast (principal); C50.911 Malignant neoplasm of unspecified site of right female breast; F17.200 Nicotine dependence, unspecified, uncomplicated; J45.909 Unspecified asthma, uncomplicated; K21.9 Gastro-esophageal reflux disease without esophagitis; M06.9 Rheumatoid arthritis, unspecified; Z88.2 Allergy status to sulfonamides

== ENCOUNTER 2022-07-26 06:12 | Day surgery (SDC) | payer BC ==
[~2022-07-26 06:12] MED LIST: ACETAMINOPHEN TAB 500 MG TAB PO PRN; DEXAMETHASONE SOD PHOSPHATE 4 MG/ML 1 ML VIAL IV ONE; HEPARIN SODIUM,PORCINE/PF 5,000 UNIT/0.5 ML SYRINGE SQ PRN; LACTATED RINGERS 1,000 ML IV SCH; MIDAZOLAM 2 MG/2 ML VIAL IV PRN; ONDANSETRON 4 MG/2 ML VIAL IVP ONE; Pre Op ABX Message 1 EACH MISC MISCELLANE ONE
[2022-07-26] MEDS ORDERED: HYDROmorphone 0.5 MG/0.5 ML SYRINGE IVP PRN (07:00)
[2022-07-26] MEDS ORDERED: fentaNYL (PF) 50 MCG/ML 2 ML AMP ONE (07:24)
[2022-07-26] MEDS ORDERED: PROPOFOL 10 MG/ML 20 ML VIAL IV ONE (07:24)
[2022-07-26] MEDS ORDERED: ceFAZolin 1,000 MG VIAL ONE (07:24)
[2022-07-26] MEDS ORDERED: SODIUM CHLORIDE 0.9% 100 ML BAG ONE (07:24)
[2022-07-26] MEDS ORDERED: HYDROmorphone (PF) 1 MG/ML ONE (07:24)
[2022-07-26] MEDS ORDERED: LIDOCAINE 2% INJ 20 MG/ML (2 ML VIAL) ONE (07:24)
[2022-07-26] MEDS ORDERED: MIDAZOLAM 2 MG/2 ML VIAL ONE (07:24)
--- NOTE | 2022-07-26 07:32 | P.GSHP ---
History of Present Illness H&P Date: 07/26/22 Chief Complaint: Bilateral breast cancer 41-year-old female here today for Port-A-Cath placement. Patient was recently diagnosed with bilateral breast cancer and oriented underwent bilateral mastectomy. Left side breast cancer was locally advanced. She has not had a port previously. Past Medical History Past Medical History: Asthma, Cancer, GERD/Reflux, Rheumatoid Arthritis (RA) Additional Past Medical History / Comment(s): Gastritis, ulcers. Current bilateral breast cancer with bilateral mastectomy and reconstruction, rt breast stitches are not helaing well usng algae patches States current limited mobility in both arms. Migraines. History of Any Multi-Drug Resistant Organisms: None Reported Past Surgical History: Appendectomy, Breast Surgery Additional Past Surgical History / Comment(s): Bilateral breast biopsies, bilateral mastectomy and breast reconstruction 06/04/2022. Past Anesthesia/Blood Transfusion Reactions: No Reported Reaction Additional Past Anesthesia/Blood Transfusion Reaction / Comment(s): no blood tx hx Smoking Status: Current every day smoker - Past Family History Mother Family Medical History: GERD/Reflux Additional Family Medical History / Comment(s): Endometriosis. Father Family Medical History: Congestive Heart Failure (CHF), Diabetes Mellitus Additional Family Medical History / Comment(s): ETOH. Medications and Allergies Home Medications Medication Instructions Recorded Confirmed Type Buprenorphine HCl/Naloxone HCl 1 film SL BID 02/12/22 07/26/22 History [Suboxone 8 mg-2 mg Sl Film] Pregabalin [Lyrica] 200 mg PO TID 02/12/22 07/26/22 History Albuterol Inhaler [Ventolin Hfa 1 - 2 puff INHALATION Q6H PRN 05/31/22 07/26/22 History Inhaler] Fish Oil/Dha/Epa [Fish Oil 1,200 1 tab PO DAILY 06/04/22 07/26/22 History mg Fish Oil] Vit No.179/Iron/Folic 1 tab PO DAILY 06/04/22 07/26/22 History [ Tablet] Allergies Allergy/AdvReac Type Severity Reaction Status Date / Time No Known Allergies Allergy Verified 07/26/22 06:43 Surgical - Exam Vital Signs Temp Pulse Resp BP Pulse Ox 97.8 F 84 16 134/70 100 07/26/22 07:06 07/26/22 07:06 07/26/22 07:06 07/26/22 07:06 07/26/22 07:06 Physical exam: General: Well-developed, well-nourished HEENT: Normocephalic, sclerae nonicteric Abdomen: Nontender, nondistended Extremities: No edema Neuro: Alert and oriented Bilateral reconstructed breasts Assessment and Plan (1) Bilateral breast cancer Narrative/Plan: 41-year-old female with bilateral breast cancer. We'll proceed with Port-A-Cath placement at this time. Discussed location with patient and we both agreed to proceed with right-sided placement. Risks of bleeding, infection, DVT, pneumothorax, catheter malfunction, anesthesia related complications were discussed. The patient understands and wishes to proceed. Current Visit: Yes Status: Acute Code(s): C50.911 - MALIGNANT NEOPLASM OF UNSP SITE OF RIGHT FEMALE BREAST; C50.912 - MALIGNANT NEOPLASM OF UNSPECIFIED SITE OF LEFT FEMALE BREAST SNOMED Code(s): 105955491
[2022-07-26] MEDS ORDERED: SODIUM CHLORIDE 0.9% 50 ML with ceFAZolin 2,000 MG IV ONE ×2 (07:50)
[2022-07-26] MEDS ORDERED: BUPIVACAINE (PF) 0.25% 30 ML VIAL SQ ONE (07:52)
[2022-07-26] MEDS ORDERED: NALOXONE 0.4 MG/ML 1 ML VIAL IV PRN (08:22)
[2022-07-26] MEDS ORDERED: HYDROcodone/APAP 5-325MG 1 EACH TAB PO PRN (08:22)
[2022-07-26 08:29] VITALS: TEMP 96.9
--- NOTE | 2022-07-26 08:35 | FL ---
EXAMINATION TYPE: FL guided central line placemt HISTORY: Fluoroscopy time Impression: 1. Fluoroscopy support provided to the referring physician.
--- NOTE | 2022-07-26 09:12 | XR ---
EXAMINATION TYPE: XR chest 1V portable DATE OF EXAM: 07/26/2022 8:57 AM COMPARISON: Chest radiographs from 09/14/2016. TECHNIQUE: XR chest 1V portable Portable AP radiograph of the chest. CLINICAL INDICATION:Female, 41 years old with history of Check line placement; FINDINGS: Lungs/Pleura: There is no evidence of pleural effusion, focal consolidation, or pneumothorax. Pulmonary vascularity: Unremarkable. Heart/mediastinum: Cardiomediastinal silhouette is unremarkable. Musculoskeletal: No acute osseous pathology. Other findings: Lateral breast prosthesis. Surgical clips overlie the left breast Lines/Tubes: [id number] projecting over the right hemithorax with distal tip at the cavoatrial junction. IMPRESSION: Interval placement of right IJ Mediport catheter with distal tip at the superior cavoatrial junction in appropriate position. No pneumothorax.
[2022-07-26 10:01] VITALS: RESP 16
[2022-07-26 10:03] VITALS: BP 161/75; PULSE 65
--- NOTE | 2022-07-31 20:50 | P.OP ---
Date of Procedure: 07/31/22 Procedure(s) Performed: PREOPERATIVE DIAGNOSIS: Breast cancer POSTOPERATIVE DIAGNOSIS: Same PROCEDURE: Port-A-Cath placement with fluoroscopic and ultrasound guidance SURGEON: Hung EBL: Minimal ANESTHESIA: Sedation COMPLICATIONS: None OPERATIVE PROCEDURE: Patient was brought and placed on the operative table in the supine position. The patient was sedated per anesthesia that time. The chest and neck were prepped and draped in usual sterile fashion. The ultrasound probe was used to identify the location of the right internal jugular vein. The skin was localized with lidocaine. The Seldinger needle was advanced into the IJ under ultrasound guidance. The wire was advanced through the needle under fluoroscopic guidance into the superior vena cava. A port pocket was created in the right infraclavicular location. The catheter was tunneled from the wire entrance site to the port pocket. The port was then connected to the catheter. The dilator introducer was threaded over the guidewire. The guidewire and dilator were then removed. The catheter was advanced through the introducer and introducer was then removed. The tip was seen to be in the right atrial junction via fluoroscopy. A picture of the radiograph showing the tip at the radial digital junction was taken. Port was flushed with both saline and a Hep- Lock solution. There was good flow both in and out of the port. The port was sutured in underlying tissues using 3-0 silk sutures. The subcutaneous tissues were reapproximated using 3-0 Vicryl sutures and the skin at both locations using 4-0 Monocryl sutures. Skin glue and sterile dressings then applied. DISPOSITION: Stable to recovery room
== END 2022-07-26 10:24 | disposition home or self-care (01) ==
LOC: OR 06:12
PROVIDERS: ATTEND Surgery
DX: Z45.2 Encounter for adjustment and management of vascular access device (principal); Z85.3 Personal history of malignant neoplasm of breast; Z90.13 Acquired absence of bilateral breasts and nipples; J45.909 Unspecified asthma, uncomplicated; M06.9 Rheumatoid arthritis, unspecified; K21.9 Gastro-esophageal reflux disease without esophagitis; Z87.19 Personal history of other diseases of the digestive system; G43.909 Migraine, unspecified, not intractable, without status migrainosus; Z90.49 Acquired absence of other specified parts of digestive tract; F17.210 Nicotine dependence, cigarettes, uncomplicated; Z79.51 Long term (current) use of inhaled steroids; Z79.899 Other long term (current) drug therapy; Z83.79 Family history of other diseases of the digestive system; Z82.49 Family history of ischemic heart disease and other diseases of the circulatory system; Z83.3 Family history of diabetes mellitus
CPT/HCPCS: 36561; 81025; 77001; 71045; C1788; J2250; J1100; J2405; J0690; J3010; J1170; J2704; J1644; J2001

== ENCOUNTER → 2022-09-21 | Outpatient (CLI) | payer BC ==
--- NOTE | 2022-09-21 19:48 | PE ---
EXAMINATION TYPE: PET CT fusion skull to thigh DATE OF EXAM: 09/21/2022 CLINICAL INDICATION:Female, 41 years old with history of C50.412; TECHNIQUE: Following the intravenous administration of 3.8 mCi of F-18 FDG, whole body images are p erformed from the skull base to the midthigh. Images are reviewed on the computer in the coronal, ax ial, and sagittal planes. Reconstructed rotating images are created on independent workstation and r eviewed on the computer. A non-contrast CT is performed in conjunction with the PET scan. Glucose l evel 104 mg/dL COMPARISON: CT 04/26/2022, PET/CT 03/29/2022, FINDINGS: Mediastinal SUV mean is 1.2. Hepatic parenchyma SUV mean is 1.7. SKULL BASE AND NECK: No suspicious radiotracer activity. CHEST, MEDIASTINUM, AND HILAR REGION: * Left axillary lymph node measuring 12 mm short axis max SUV 5.1 previously not definitively visual ized in the same location. * No abnormal soft tissue in the left internal mammary chain series 3 image 80 without measuring 4 m m which is too small for PET/CT, max SUV 1.0. * Postsurgical changes within the breast with linear uptake likely postsurgical changes, on the righ t max SUV 3.0 and on the left 2.7. ABDOMEN AND PELVIS: No suspicious radiotracer activity. OSSEOUS STRUCTURES: No suspicious radiotracer activity. OTHER CT: Right chest [id number] with tip terminating in the superior vena cava. Post surgical luzmaria nges the breasts with subcutaneous gas within the right breast. There is at least 1 pocket of fluid w ithin the right breast measuring 18 x 11 mm. IMPRESSION: 1. Left axillary lymph node enlarged and new from prior with increased metabolic activity concerning for residual disease. No additional areas visualized. Of note there is abnormal small lymph node wit hin the left internal mammary chain without increased FDG activity which may be due to its small size . 2. Postsurgical changes to the breasts mild linear FDG activity. There is some gas within the chest wall bilaterally and the pocket of fluid on the right. Fluid likely representing seroma/hematoma. Cor relate for date of recent surgical intervention.
== END | disposition home or self-care (01) ==
LOC: RADPETMAIN 12:56
PROVIDERS: ATTEND Internal Medicine Hematology & Oncology
DX: C50.412 Malignant neoplasm of upper-outer quadrant of left female breast (principal); R59.9 Enlarged lymph nodes, unspecified
CPT/HCPCS: 78815; A9552

== ENCOUNTER → 2022-09-30 | Outpatient (CLI) | payer BC ==
--- NOTE | 2022-09-30 13:34 | US ---
EXAMINATION TYPE: US axilla LT DATE OF EXAM: 09/30/2022 COMPARISON: PET scan CLINICAL INDICATION: Female, 41 years old with history of C50.412 MALIGNANT NEOPLASM UPPER OUTTER LASHONDA D LT BR; History of breast CA, abnormal PET scan Probable lymph node within left axilla adjacent to axillary vessels= 2.0 x 1.4 x 2.8 cm FINDINGS: There is a 2.0 x 2.4 x 2.8 cm soft tissue nodule in the left axilla most likely related to an enlarge d lymph node. IMPRESSION: Findings are concordant with the CT scan of 09/26/2022 with an area of pathologic lymphade nopathy in the left axilla.
== END | disposition home or self-care (01) ==
LOC: RADUSWWP 12:57
PROVIDERS: ATTEND Internal Medicine Hematology & Oncology
DX: C50.412 Malignant neoplasm of upper-outer quadrant of left female breast (principal); R59.0 Localized enlarged lymph nodes

== ENCOUNTER 2022-10-02 13:02 | Day surgery (SDC) | payer BC ==
[2022-10-02 13:38] VITALS: RESP 16; TEMP 98
--- NOTE | 2022-10-02 14:20 | US ---
ULTRASOUND GUIDED CORE BIOPSY LEFT AXILLARY LYMPH NODE: CLINICAL HISTORY: Left axillary lymph node FINDINGS: The procedure was explained to the patient. The risks, complications, benefits and alternatives were discussed and any questions were answered. Informed consent was obtained. Patient was placed supin e on the ultrasound table and prepped and draped in the usual sterile fashion. Utilizing a 18 gauge needle, two passes were made into the left axillary lymph node. Patient was stable throughout the procedure. Pathology is pending. All elements of maximal barrier technique were utilized. IMPRESSION: 1. Successful ultrasound guided core biopsy left axillary lymph node.
[2022-10-02 14:36] VITALS: BP 122/78; PULSE 91
== END 2022-10-02 14:05 | disposition home or self-care (01) ==
LOC: RADPROMAIN 13:02
PROVIDERS: ATTEND Internal Medicine Hematology & Oncology
DX: C50.412 Malignant neoplasm of upper-outer quadrant of left female breast (principal); R59.0 Localized enlarged lymph nodes
CPT/HCPCS: 38505; 76942; 88305; 88341; 88342

== ENCOUNTER → 2022-10-17 | Outpatient (CLI) | payer BC ==
[2022-10-17 09:30] VITALS: BP 136/82; PULSE 78; RESP 16; TEMP 98.4
--- NOTE | 2022-10-17 09:49 | P.PN ---
Subjective Progress Note Date: 10/17/22 Principal diagnosis: bilateral breast cancer left breast invasive ductal cancer Radha is a 41 year old female seen in consultation for Casandra Arteaga regarding a left breast mass. Radha noted a lump in her left breast up proximally January 02. She subsequently underwent a bilateral mammogram on [id number]. This revealed a lesion in the left breast at the site of palpable abnormality as well as in the upper inner posterior left breast a 1 and 1.2 cm ill-defined defined additional density. The left axillary lymph nodes were slightly prominent measuring up to 2 cm. No lesions of concern were noted in the right breast. An ultrasound was performed which revealed 2 lesions in the left breast for which biopsy was recommended. The 3 areas biopsied on the left. This was done on [id number]. The lesion at 11:00 in the left breast revealed a fibroadenoma. the lesion at 1:00 in the left breast revealed an invasive moderately differentiated ductal carcinoma grade 2, the lesion in the left axilla revealed a lymph node which did show metastatic carcinoma consistent with a ductal primary. She did not feel any other lumps masses or nodules of concern. Genetic testing: a variant of BRCA2 Breast MRI leading to a right breast biopsy right breast biopsy: invasive lobular cancer; left breast invasive ductal cancer + node PET CT no specific mets/ CT chest abd and pelvis reviewed pre-op oncotype score: 23 The patient on 06-04-22 had bilateral mastectomies with 5 of 7 nodes positive on the left and 3 removed on the right all (-); is not complaining of any new lumps masses or nodules of concern on her chest wall.She does state her left axilla is slightly aching after the biopsy of the left axilla which was done on . This revealed an invasive carcinoma is ER and [place] positive. It is HER-2 negative. She developed bilateral tutor coordinator infections which were removed by Dr. Lieberman in July. recent PET SCAN + high axillary node on the left, biopsy proven cancer case represented at tumor board recommend chemotherapy not recommended re- excision in the OR Have discussed chemotherapy, we have also discussed awaiting breast reconstruction until following the chemotherapy. Caffeine: 1 pot/day, pop nicotine: 1/2 PPD since 19 chocolate: daily BCP: 3-4 years Family history: paternal grandmother: breast cancer paternal great aunt: breast cancer paternal aunt: breast cancer paternal aunt: breast cancer Hormonal History: menarche: 13 , breast fed: no, age at first : 26 periods regular; LMP: now Surgical history: appy Medical History: Fibromyalgia daily uses Lyrica asthma exercise induced arthritis Social history: Nicotine: Half a pack per day since Alcohol: Negative Drugs: Marijuana weekly for relaxation - Constitutional Constitutional: Denies chills, Denies fever - EENT Eyes: denies blurred vision, denies pain Ears: deny: decreased hearing, tinnitus Ears, nose, mouth and throat: Reports headache, Reports sore throat - Breasts Breasts: bilateral: as per HPI - Cardiovascular Cardiovascular: Denies chest pain, Denies shortness of breath - Respiratory Respiratory: Denies cough - Gastrointestinal Comment: PUD 12 years ago Gastrointestinal: Denies abdominal pain, Denies diarrhea, Denies nausea, Denies vomiting - Genitourinary (Female) Genitourinary: Denies dysuria, Denies hematuria - Menstruation Menstruation: Reports period normal - Musculoskeletal Comment: fibromyalgia - Integumentary Integumentary: Denies pruritus, Denies rash - Neurological Neurological: Denies numbness, Denies weakness - Psychiatric Psychiatric: Denies anxiety, Denies depression - Endocrine Endocrine: Reports fatigue, Denies weight change - Hematologic/Lymphatic Comment: none - Allergic/Immunologic Allergic/Immunologic: Reports seasonal allergies Past Medical History Past Medical History: Asthma, GERD/Reflux, Rheumatoid Arthritis (RA) Additional Past Medical History / Comment(s): gastritis, ulcers History of Any Multi-Drug Resistant Organisms: None Reported Past Surgical History: Appendectomy Past Anesthesia/Blood Transfusion Reactions: No Reported Reaction Past Psychological History: No Psychological Hx Reported Smoking Status: Current every day smoker Past Alcohol Use History: None Reported Past Drug Use History: Marijuana, Opiates Additional Drug Use History / Comment(s): Hx of opiate use, currently on Suboxone for 2 years. - Past Family History Mother Family Medical History: GERD/Reflux Additional Family Medical History / Comment(s): endometriosis Father Family Medical History: Congestive Heart Failure (CHF), Diabetes Mellitus Additional Family Medical History / Comment(s): etoh Medications and Allergies Home Medications Medication Instructions Recorded Confirmed Type Ipratropium-Albuterol Nebulize 3 ml INHALATION RT-QID #120 neb 09/16/16 02/12/22 Rx [Duoneb 0.5 mg-3 mg/3 ml Soln] Buprenorphine HCl/Naloxone HCl 1 film SL BID 02/12/22 02/12/22 History [Suboxone 8 mg-2 mg Sl Film] Loratadine [Claritin] 10 mg PO DAILY 02/12/22 02/12/22 History Pregabalin [Lyrica] 200 mg PO TID 02/12/22 02/12/22 History Allergies Allergy/AdvReac Type Severity Reaction Status Date / Time sulfamethoxazole Allergy Swelling Verified 02/12/22 08:30 [From Bactrim] trimethoprim [From Bactrim] Allergy Swelling Verified 02/12/22 08:30 Objective - Vital Signs Vital signs: Vital Signs Temp 98.4 F 10/17/22 09:27 Pulse 78 10/17/22 09:27 Resp 16 10/17/22 09:27 BP 136/82 10/17/22 09:27 Pulse Ox 97 10/17/22 09:27 FiO2 Intake & Output 10/16/22 10/17/22 10/17/22 18:59 06:59 18:59 Weight 95.254 kg - Constitutional General appearance: Present: cooperative - EENT Eyes: Present: EOMI ENT: Present: hearing grossly normal - Neck Neck: Present: normal ROM - Respiratory Details: wheezing on the right base Respiratory: bilateral: CTA - Cardiovascular Heart sounds: normal: S1, S2 - Gastrointestinal General gastrointestinal: Present: soft - Integumentary Integumentary: Present: normal turgor - Musculoskeletal Musculoskeletal: Present: gait normal - Psychiatric Psychiatric: Present: A&O x's 3, appropriate affect, intact judgment & insight - Additional findings Additional findings: Breast examination: Patient status post bilateral skin sparing mastectomies, expanders have been removed secondary to infection Right chest wall: No dominant masses or nodules of concern Right axilla: No adenopathy of concern Left chest wall: No dominant masses or nodules of concern Left axilla: No palpable adenopathy on today's exam Assessment and Plan Assessment: Impression: Right breast invasive lobular carcinoma Left breast invasive ductal carcinoma with positive lymph nodes PET scan no evidence of metastatic disease pre op; recent PET patient's left axillary node biopsy proven positive for cancer Genetic testing heterozygous variant of BRCA2 gene Oncotype 23 Plan: At this time patient and her have agreed to adjuvant chemotherapy This was most likely be followed by radiation therapy At this time we will not do surgical resection of the node in the left axilla this is in close proximity to the axillary vessels Case was presented at tumor board and recommendation is for chemotherapy/radiation therapy/no surgical intervention at this time CC: Casandra Arteaga
== END ==
LOC: WWCWWP 08:52
PROVIDERS: ATTEND Surgery
DX: D05.01 Lobular carcinoma in situ of right breast (principal); D05.12 Intraductal carcinoma in situ of left breast; J45.909 Unspecified asthma, uncomplicated; K21.9 Gastro-esophageal reflux disease without esophagitis; M06.9 Rheumatoid arthritis, unspecified; F17.200 Nicotine dependence, unspecified, uncomplicated; K25.9 Gastric ulcer, unspecified as acute or chronic, without hemorrhage or perforation; M79.7 Fibromyalgia; Z80.3 Family history of malignant neoplasm of breast; Z17.0 Estrogen receptor positive status [ER+]

== ENCOUNTER → 2022-11-13 | Outpatient (CLI) | payer BC ==
[2022-11-13 16:48] LABS: BUN/Creat Ratio 15.67 Ratio (12.00-20.00); Blood Urea Nitrogen 14.1 mg/dL (9.0-27.0); Calcium 9.8 mg/dL (8.7-10.3); Carbon Dioxide 29.1 mmol/L (21.6-31.8); Chloride 104 mmol/L (96-109); Glucose 88 mg/dL (70-110); Potassium 4.9 mmol/L (3.5-5.5); Sodium 141 mmol/L (135-145)
[2022-11-13 17:55] LABS: Basophils # (A) 0.08 X 10*3/uL (0.00-0.10); Basophils % (A) 0.9 %; Eosinophils # (A) 0.24 X 10*3/uL (0.04-0.35); Eosinophils % (A) 2.8 %; HCT 40.2 % (37.2-46.3); Lymphocytes # (A) 2.33 X 10*3/uL (0.90-5.00); Lymphocytes % (A) 26.8 %; MCH 29.2 pg (27.0-32.0); MCHC 32.3 d/dL (32.0-37.0); MCV 90.3 FL (80.0-97.0); Mean Platelet Volume 11.4 FL (9.5-12.2); Monocytes # (A) 0.66 X 10*3/uL (0.20-1.00); Monocytes % (A) 7.6 %; NRBC Per 100 WBC 0 X 10*3/uL (0.00-0.01); Neutrophils # (A) 5.36 X 10*3/uL (1.80-7.70); Neutrophils % (A) 61.7 %; Platelet Count 267 X 10*3/uL (140-440); RBC 4.45 X 10*6/uL (4.10-5.20); RDW 14.8 % (11.5-14.5); WBC 8.69 X 10*3/uL (4.50-10.00)
== END | disposition home or self-care (01) ==
LOC: LABPAT 11:20
PROVIDERS: ATTEND Obstetrics & Gynecology
DX: Z01.812 Encounter for preprocedural laboratory examination (principal)
CPT/HCPCS: 80048; 85025

== ENCOUNTER 2022-11-14 08:17 | Day surgery (SDC) | payer BC ==
[2022-11-12 08:34] VITALS: BMI 33.9
--- NOTE | 2022-11-13 15:25 | P.HPOB ---
History of Present Illness H&P Date: 11/13/22 Chief Complaint: breast cancer 41 year old presents for H BSO using da lala and diagnostic cystosopcy. PT has hormone recepter + breast cancer and +BRCA2. Oncology rec this procedure. Review of Systems All systems: negative Constitutional: Denies chills, Denies fever Eyes: denies blurred vision, denies pain Ears, nose, mouth and throat: Denies headache, Denies sore throat Cardiovascular: Denies chest pain, Denies shortness of breath Respiratory: Denies cough Gastrointestinal: Denies abdominal pain, Denies diarrhea, Denies nausea, Denies vomiting Genitourinary: Denies dysuria, Denies hematuria Musculoskeletal: Denies myalgias Integumentary: Denies pruritus, Denies rash Neurological: Denies numbness, Denies weakness Psychiatric: Denies anxiety, Denies depression Endocrine: Denies fatigue, Denies weight change Past Medical History Past Medical History: Asthma, Cancer, GERD/Reflux, Rheumatoid Arthritis (RA) Additional Past Medical History / Comment(s): Gastritis, ulcers. Current bilateral breast cancer with bilateral mastectomy and reconstruction, States current limited mobility in both arms. Migraines. History of Any Multi-Drug Resistant Organisms: None Reported Past Surgical History: Appendectomy, Breast Surgery Additional Past Surgical History / Comment(s): Bilateral breast biopsies, bilateral mastectomy and breast reconstruction 06/04/2022., PORT A CATH Past Anesthesia/Blood Transfusion Reactions: No Reported Reaction Additional Past Anesthesia/Blood Transfusion Reaction / Comment(s): no blood tx hx Smoking Status: Current every day smoker - Past Family History Mother Family Medical History: GERD/Reflux Additional Family Medical History / Comment(s): Endometriosis. Father Family Medical History: Congestive Heart Failure (CHF), Diabetes Mellitus Additional Family Medical History / Comment(s): ETOH. Medications and Allergies Home Medications Medication Instructions Recorded Confirmed Type Buprenorphine HCl/Naloxone HCl 1 film SL BID 02/12/22 11/12/22 History [Suboxone 8 mg-2 mg Sl Film] Pregabalin [Lyrica] 200 mg PO TID 02/12/22 11/12/22 History Multivitamin [Multivitamins Adult 1 each PO DAILY 09/30/22 11/12/22 History Gummies] Allergies Allergy/AdvReac Type Severity Reaction Status Date / Time No Known Allergies Allergy Verified 11/12/22 08:23 Exam Osteopathic Statement: *. No significant issues noted on an osteopathic structural exam other than those noted in the History and Physical/Consult. HEArt: RRR Lungs: CTAB Abdomen: soft, nontender Extremeties: neg tracie's Assessment and Plan (1) Bilateral breast cancer Status: Acute Code(s): C50.911 - MALIGNANT NEOPLASM OF UNSP SITE OF RIGHT FEMALE BREAST; C50.912 - MALIGNANT NEOPLASM OF UNSPECIFIED SITE OF LEFT FEMALE BREAST SNOMED Code(s): 574707600 Plan: 1. [facility] BSO using da lala and diagnostic cystoscopy
[~2022-11-14 08:17] MED LIST changes: -ACETAMINOPHEN TAB 500 MG TAB PO PRN; -HEPARIN SODIUM,PORCINE/PF 5,000 UNIT/0.5 ML SYRINGE SQ PRN; +HYDROmorphone 0.5 MG/0.5 ML SYRINGE IVP PRN; -MIDAZOLAM 2 MG/2 ML VIAL IV PRN; -Pre Op ABX Message 1 EACH MISC MISCELLANE ONE
[2022-11-14] MEDS ORDERED: SCOPOLAMINE 1 MG/72 HR PATCH TRANSDERM ONE (09:23)
[2022-11-14] MEDS ORDERED: MIDAZOLAM 2 MG/2 ML VIAL IVP ONE (09:34)
[2022-11-14] MEDS ORDERED: fentaNYL (PF) 50 MCG/ML 2 ML AMP ONE (09:55)
[2022-11-14] MEDS ORDERED: LIDOCAINE 2% INJ 20 MG/ML (2 ML VIAL) ONE (09:55)
[2022-11-14] MEDS ORDERED: HYDROmorphone (PF) 1 MG/ML ONE (09:55)
[2022-11-14] MEDS ORDERED: NEOSTIGMINE 1 MG/ML 10 ML VIAL ONE (09:55)
[2022-11-14] MEDS ORDERED: ePHEDrine 50 MG/ML 1 ML VIAL ONE (09:55)
[2022-11-14] MEDS ORDERED: GLYCOPYRROLATE 0.2 MG/ML 2 ML VIAL ONE (09:55)
[2022-11-14] MEDS ORDERED: SUCCINYLCHOLINE CHLORIDE 200 MG/10 ML VIAL IV ONE (09:55)
[2022-11-14] MEDS ORDERED: KETAMINE 10 MG/ML 20 ML VIAL ONE (09:55)
[2022-11-14] MEDS ORDERED: MIDAZOLAM 2 MG/2 ML VIAL ONE (09:55)
[2022-11-14] MEDS ORDERED: PROPOFOL 10 MG/ML 20 ML VIAL IV ONE (09:55)
[2022-11-14] MEDS ORDERED: KETOROLAC 15 MG/ML 1 ML VIAL ONE (09:55)
[2022-11-14] MEDS ORDERED: ROCURONIUM 10 MG/ML (5 ML VIAL) IV ONE (09:55)
--- NOTE | 2022-11-14 09:55 | P.ANPRN ---
Procedure Note - Anesthesia - Epidural/Spinal Spinal Time Out Performed: Yes Date of Procedure: 11/14/22 Procedure Start Time: :33 Procedure Stop Time: 09:38 Location of Patient: PreOp Indication: Acute Post-Operative Pain, Requested by Surgeon Sedation Type: Sedate with meaningful contact maintained Preparation: Sterile Dressing Position: Sitting Catheter: None Needle Guage: 25, Other (see comment) Blood Aspirated: No Pain Paresthesia on Injection Noted: No Events: Uneventful and Well Tolerated (At L4-L5 interspinous space with one attempt. A mixture of 25 g of fentanyl, and 300 g of morphine preservative- free mixture used for the procedure. Sterile dressing applied after after needle removed over the entry site.)
[2022-11-14] MEDS ORDERED: BUPIVACAINE (PF) 0.25% 30 ML VIAL SQ ONE ×2 (10:55→11:25)
[2022-11-14] MEDS ORDERED: LACTATED RINGERS 1,000 ML IV ONE (11:23)
--- NOTE | 2022-11-14 11:30 | P.OP ---
Date of Procedure: 11/14/22 Preoperative Diagnosis: 1. hormone receptor + breast cancer Postoperative Diagnosis: same Procedure(s) Performed: TLHBSO using da Julissa and diagnostic cystoscopy Anesthesia: JUANA Surgeon: Angie Berumen Production Control Scheduler #1: Georgia Bridges Estimated Blood Loss (ml): 10 IV fluids (ml): 600 Urine output (ml): 50 Pathology: other (Uterus, cervix, bilateral tubes and ovaries) Condition: stable Disposition: PACU Description of Procedure: Patient taken the operating room where general anesthesia was obtained without difficulty. She is prepped and draped in normal sterile fashion dorsal lithotomy position, legs placed in the Smith stirrups. Weighted speculum placed in the vagina and the anterior lip the cervix was grasped with single-tooth tenaculum. The uterus sounded to 9 cm. The [employer] manipulator was then placed in the uterus. Fowler catheter was also placed. Attention was then turned to the abdomen and gloves were changed. A 5 mm supraumbilical incision was made the scalpel and a 5 mm optical trocar was placed under direct visualization. 10 cm to the right of this and 2 cm down a 5 mm incision was made and 8 mm da Julissa port was placed under direct visualization. Same measurements on the opposite side of the patient's abdomen, the 5 mm incision was made and 8 mm da Julissa port was placed under direct visualization. In the left upper quadrant a 10 mm incision was made and a 10 mm optical trocar was placed under direct visualization. The 5 mm optical trocar was then replaced with the 8 mm da Julissa camera port. The robot was docked on patient's right side. The camera was introduced and then the monopolar curved scissor and vessel sealer placed under direct visualization. I broke scrub and went to the physician console. The left pretibial pelvic ligament was sealed and cut using the vessel sealer. The left round ligament was sealed and cut using the vessel sealer. The posterior leaf of the broad ligament was taken down using the monopolar curved scissors. Anterior leaf of the broad ligament was then taken down using the monopolar curved scissors. The uterine artery was sealed and cut using the vessel sealer. The bladder flap was then started using the monopolar curved scissors. Attention was then turned to the right side of the patient's anatomy and the right infundibulopelvic ligament was sealed and cut with the vessel sealer. The right round ligament was sealed and cut with the vessel sealer. Posterior leaf of the broad ligament was taken down using the monopolar curved scissors and the anterior leaf was taken down using the monopolar curved scissors. The uterine artery was sealed and cut with the vessel sealer. The bladder flap was then finished on this side. Anterior colpotomy was made using the monopolar curved scissors. The rest of the uterus was from the vaginal cuff by following the ring around with the monopolar curved scissors through the uterosacral ligaments back to the anterior portion. Once the uterus and cervix were amputated they were pulled through the vaginal cuff. Hemostasis was assured. The monopolar scissors were changed for the sly suture cut. The vaginal cuff was then closed using O stratafix barbed suture in a running fashion. Hemostasis was again assured and the pelvis was irrigated. All instruments were removed from the abdomen and the robot was undocked. I scrubbed back in to perform a cystoscopy. There were jets from both ureteral orifices. The abdominal incisions were closed with 4-0 Vicryl in a subcuticular fashion. Patient tolerated the procedure well, sponge and instrument counts correct 2 and she was taken to recovery room in stable condition condition
[2022-11-14] MEDS ORDERED: ONDANSETRON 4 MG/2 ML VIAL IVP ONE (11:37)
[2022-11-14] MEDS: fentaNYL (PF) 50 MCG/1 ML VIAL IVP ONE ×2 (11:57→12:01)
[2022-11-14] MEDS ORDERED: ACETAMINOPHEN IV (For NPO) 1,000 MG/100 ML VIAL IVPB ONE (12:20)
[2022-11-14] MEDS ORDERED: NALOXONE 0.4 MG/ML 1 ML VIAL IV PRN (12:59)
[2022-11-14] MEDS ORDERED: ONDANSETRON 4 MG/2 ML VIAL IVP PRN ×2 (12:59→16:34)
[2022-11-14] MEDS ORDERED: NALBUPHINE 10 MG/ML (10 ML MDV) IV PRN (12:59)
[2022-11-14] MEDS ORDERED: KETOROLAC 15 MG/ML 1 ML VIAL IVP PRN (16:34)
[2022-11-14] MEDS ORDERED: SIMETHICONE 80 MG CHEWABLE PO PRN (16:34)
[2022-11-14] MEDS: IBUPROFEN 600 MG TAB PO PRN ×2 (18:13→23:47)
[2022-11-14] MEDS: PREGABALIN 100 MG CAP PO SCH ×2 (18:14→23:55)
[2022-11-14] MEDS ORDERED: SENNOSIDES-DOCUSATE SODIUM 1 EACH TAB PO SCH (21:00)
[2022-11-14] MEDS ORDERED: NON FORMULARY DRUG (Buprenorphine Hcl/Naloxone Hcl [Suboxone 8 Mg-2 Mg Sl Film] 1 EACH Fil SUBLINGUAL SCH (21:00)
[2022-11-15 03:35] VITALS: RESP 18
[2022-11-15] MEDS: IBUPROFEN 600 MG TAB PO PRN (06:01)
--- NOTE | 2022-11-15 07:15 | P.PN ---
Progress Note - Text Progress Note Date: 11/15/22 Postop day 1 from hysterectomy under general anesthesia with intrathecal morphine given for postop pain management. Patient is doing well. Pain is well controlled. On visual analog scale 4/10 Mild itching present Nausea or vomiting reported but better now. No Headache or weakness and numbness in the legs. No complications from spinal morphine.
[2022-11-15 07:19] LABS: Basophils % (A) 0 %; Eosinophils # (A) 0.1 k/uL (0-0.7); Eosinophils % (A) 1 %; HCT 34.9 % (34.0-46.0); HGB 11.9 gm/dL (11.4-16.0); Lymphocytes # (A) 2.3 k/uL (1.0-4.8); Lymphocytes % (A) 18 %; Mean Platelet Volume 9.7; Monocytes # (A) 0.7 k/uL (0-1.0); Monocytes % (A) 6 %; Neutrophils # (A) 9.1 k/uL (1.3-7.7); Neutrophils % (A) 73 %; Platelet Count 194 k/uL (150-450); RBC 3.83 m/uL (3.80-5.40); RDW 14.7 % (11.5-15.5); WBC 12.4 k/uL (3.8-10.6)
[2022-11-15] MEDS: PREGABALIN 100 MG CAP PO SCH (08:27)
[2022-11-15 09:27] VITALS: BP 117/69; PULSE 67; TEMP 97.5
== END 2022-11-15 10:15 | disposition home or self-care (01) ==
LOC: OR 08:17 → 4FBP 15:54 → OR 11-15 10:15
PROVIDERS: ATTEND Obstetrics & Gynecology
DX: N72 Inflammatory disease of cervix uteri (principal); C50.912 Malignant neoplasm of unspecified site of left female breast; D25.9 Leiomyoma of uterus, unspecified; C50.911 Malignant neoplasm of unspecified site of right female breast; J45.909 Unspecified asthma, uncomplicated; K21.9 Gastro-esophageal reflux disease without esophagitis; M06.9 Rheumatoid arthritis, unspecified; F17.200 Nicotine dependence, unspecified, uncomplicated
CPT/HCPCS: 58571; S2900; 81025; 85025; 86850; 86900; 86901; 88307

== ENCOUNTER → 2023-03-20 | Outpatient (CLI) | payer BC ==
--- NOTE | 2023-03-23 12:26 | PE ---
EXAMINATION TYPE: PET CT fusion skull to thigh DATE OF EXAM: 03/20/2023 CLINICAL INDICATION:Female, 42 years old with history of C50.412 BREAST CANCER; TECHNIQUE: Following the intravenous administration of 9.1 mCi of F-18 FDG, whole body images are p erformed from the skull base to the midthigh. Images are reviewed on the computer in the coronal, ax ial, and sagittal planes. Reconstructed rotating images are created on independent workstation and r eviewed on the computer. A non-contrast CT is performed in conjunction with the PET scan. Glucose l evel 97 mg/dL CT DLP: 729 mGycm, Automated exposure control for dose reduction was used. COMPARISON: CT None, PET/CT 09/21/2022, FINDINGS: Mediastinal SUV mean is 1.5. Hepatic parenchyma SUV mean is 2.6. SKULL BASE AND NECK: No suspicious radiotracer activity. CHEST, MEDIASTINUM, AND HILAR REGION: * Left axillary lymph node have resolved max SUV below background levels 1.3, previously 5.1. * Abnormal soft tissue in the left internal mammary chain no longer visualized. * Postsurgical changes within the breast with linear uptake likely postsurgical changes are below ba ck on levels bilaterally. ABDOMEN AND PELVIS: No suspicious radiotracer activity. OSSEOUS STRUCTURES: 1. No suspicious radiotracer activity. 2. Diffuse uptake compatible with colony stimulating factor. 3. Heterogenous uptake within left medial thigh compartment muscle compatible with muscle strain. OTHER CT: Right chest [id number] with tip terminating in the superior vena cava. Post surgical luzmaria nges the breasts with subcutaneous gas within the right breast. Previous pocket of fluid in the right breast is no longer visualized. IMPRESSION: 1. Positive response to therapy with decrease in left axillary FDG avid lymph nodes. The Left validation intern al mammary chain lymph node is no longer visualized. No abnormal uptake visualized. 2. Postsurgical changes to the breasts below background levels linear FDG activity. 3. Uptake within the osseous structures compatible with colony-stimulating factor.
== END | disposition home or self-care (01) ==
LOC: RADPETMAIN 10:02
PROVIDERS: ATTEND Internal Medicine Hematology & Oncology
DX: C50.412 Malignant neoplasm of upper-outer quadrant of left female breast (principal); Z98.890 Other specified postprocedural states
CPT/HCPCS: 78815; A9552

== ENCOUNTER 2023-05-15 11:45 | Day surgery (SDC) | payer BC ==
[2023-05-08 10:58] VITALS: BMI 31.9
[~2023-05-15 11:45] MED LIST changes: +ACETAMINOPHEN TAB 500 MG TAB PO PRN; +HEPARIN SODIUM,PORCINE 5,000 UNIT/ML 1 ML VIAL SQ PRN; +MIDAZOLAM 2 MG/2 ML VIAL IV PRN; +SCOPOLAMINE 1 MG/72 HR PATCH TRANSDERM ONE
--- NOTE | 2023-05-15 12:11 | P.GSHP ---
History of Present Illness H&P Date: 05/15/23 Chief Complaint: Breast cancer 6-year-old female known to our service. Patient underwent previous Port-A-Cath placement on the right-hand side. She is here today for Port-A-Cath removal. She has had no issues with the port. Past Medical History Past Medical History: Asthma, Cancer, GERD/Reflux, Rheumatoid Arthritis (RA) Additional Past Medical History / Comment(s): Gastritis, ulcers. Migraines. History of Any Multi-Drug Resistant Organisms: None Reported Past Surgical History: Appendectomy, Breast Surgery, Hysterectomy Additional Past Surgical History / Comment(s): Bilateral breast biopsies, bilateral mastectomy and breast reconstruction 06/04/2022. PORT A CATH INSERTION Past Anesthesia/Blood Transfusion Reactions: No Reported Reaction Additional Past Anesthesia/Blood Transfusion Reaction / Comment(s): no blood tx hx Smoking Status: Former smoker, Vaper - Past Family History Mother Family Medical History: GERD/Reflux Additional Family Medical History / Comment(s): Endometriosis. Father Family Medical History: Congestive Heart Failure (CHF), Diabetes Mellitus Additional Family Medical History / Comment(s): ETOH. Medications and Allergies Home Medications Medication Instructions Recorded Confirmed Type Buprenorphine HCl/Naloxone HCl 1 film SL BID 02/12/22 05/08/23 History [Suboxone 8 mg-2 mg Sl Film] Pregabalin [Lyrica] 200 mg PO TID 02/12/22 05/08/23 History Multivitamin [Multivitamins Adult 1 each PO DAILY 09/30/22 05/08/23 History Gummies] Ibuprofen [Motrin] 600 mg PO Q6HR PRN #40 tab 11/15/22 05/08/23 Rx OLANZapine [ZyPREXA] 2.5 mg PO HS PRN 02/07/23 05/08/23 History Ondansetron [Zofran] 4 mg PO Q8HR PRN 02/07/23 05/08/23 History Allergies Allergy/AdvReac Type Severity Reaction Status Date / Time No Known Allergies Allergy Verified 05/08/23 10:23 Surgical - Exam Physical exam: General: Well-developed, well-nourished HEENT: Normocephalic, sclerae nonicteric Abdomen: Nontender, nondistended Extremities: No edema Neuro: Alert and oriented Assessment and Plan (1) Bilateral breast cancer Narrative/Plan: 6-year-old female with history of breast cancer. Will proceed with Port-A-Cath removal at this time. Risks of bleeding, infection, scarring discussed. She understands and wishes to proceed. Current Visit: No Status: Acute Code(s): C50.911 - MALIGNANT NEOPLASM OF UNSP SITE OF RIGHT FEMALE BREAST; C50.912 - MALIGNANT NEOPLASM OF UNSPECIFIED SITE OF LEFT FEMALE BREAST SNOMED Code(s): 756336054
[2023-05-15 12:35] VITALS: TEMP 97
[2023-05-15] MEDS ORDERED: MIDAZOLAM 2 MG/2 ML VIAL ONE (12:58)
[2023-05-15] MEDS ORDERED: LIDOCAINE 1% INJ 10MG/ML (20 ML MDV) ONE (12:58)
[2023-05-15] MEDS ORDERED: KETAMINE HCL IN 0.9 % NACL 50 MG/5 ML SYRINGE ONE (12:58)
[2023-05-15] MEDS ORDERED: PROPOFOL 10 MG/ML 20 ML VIAL IV ONE (12:58)
[2023-05-15] MEDS ORDERED: LIDOCAINE 1% INJ 10MG/ML (20 ML MDV) SQ ONE ×2 (13:01→13:10)
[2023-05-15] MEDS ORDERED: NALOXONE 0.4 MG/ML 1 ML VIAL IV PRN (13:51)
--- NOTE | 2023-05-15 13:52 | P.OP ---
Date of Procedure: 05/15/23 Procedure(s) Performed: PREOPERATIVE DIAGNOSIS: Breast cancer POSTOPERATIVE DIAGNOSIS: Same PROCEDURE: Port-A-Cath removal SURGEON: Hung EBL: Minimal ANESTHESIA: Sedation COMPLICATIONS: None OPERATIVE PROCEDURE: Patient was placed in the supine position. The patient was sedated per anesthesia that time. The chest was prepped and draped in the usual sterile fashion. The skin was localized with Marcaine solution. The previous incision was re-incised using a scalpel. The port was easily excised using accommodation of blunt dissection sharp dissection and electrocautery. The subcutaneous tissues were reapproximated using 3-0 Vicryl sutures. The skin was reapproximated using 4-0 Monocryl sutures. Skin glue was then applied. DISPOSITION: Stable to recovery room
[2023-05-15 15:09] VITALS: BP 111/69; PULSE 55; RESP 16
== END 2023-05-15 15:08 | disposition home or self-care (01) ==
LOC: OR 11:45
PROVIDERS: ATTEND Surgery
DX: C50.919 Malignant neoplasm of unspecified site of unspecified female breast (principal); M06.9 Rheumatoid arthritis, unspecified; K21.9 Gastro-esophageal reflux disease without esophagitis; J45.909 Unspecified asthma, uncomplicated; G43.909 Migraine, unspecified, not intractable, without status migrainosus; Z87.19 Personal history of other diseases of the digestive system; Z90.710 Acquired absence of both cervix and uterus; Z98.890 Other specified postprocedural states; Z87.891 Personal history of nicotine dependence; Z83.3 Family history of diabetes mellitus; Z82.49 Family history of ischemic heart disease and other diseases of the circulatory system; Z79.899 Other long term (current) drug therapy
CPT/HCPCS: 36590; J2250; J1644; J1100; J0690; J2405; J2001; J2704

== ENCOUNTER → 2024-04-16 | Outpatient (CLI) | payer BC ==
--- NOTE | 2024-04-17 08:31 | PE ---
EXAMINATION TYPE: PET CT fusion skull to thigh DATE OF EXAM: 04/16/2024 CLINICAL INDICATION:Female, 43 years old with history of C50.412 BREAST CANCER; TECHNIQUE: Following the intravenous administration of 11..21 mCi of F-18 FDG, whole body images ar e performed from the skull base to the midthigh. Images are reviewed on the computer in the coronal, axial, and sagittal planes. Reconstructed rotating images are created on independent workstation an d reviewed on the computer. A non-contrast CT is performed in conjunction with the PET scan. Glucos e level 92 mg/dL CT DLP: 438 mGycm, Automated exposure control for dose reduction was used. COMPARISON: CT none, PET/CT 03/20/2023, MRI: None, ultrasound biopsy 10/02/2022 FINDINGS: Mediastinal SUV mean is 1.1. Hepatic parenchyma SUV mean is 1.6. SKULL BASE AND NECK: No suspicious radiotracer activity. CHEST, MEDIASTINUM, AND HILAR REGION: * Left axillary lymph node have resolved max SUV below background levels 1.3, previously 5.1. * Abnormal soft tissue in the left internal mammary chain no longer visualized. * Postsurgical changes within the breast without uptake. ABDOMEN AND PELVIS: No suspicious radiotracer activity. OSSEOUS STRUCTURES: * No suspicious radiotracer activity. * Uptake within the scalene muscles bilaterally left greater than right compatible with muscle strai n. * OTHER CT: Post surgical changes the breasts. Posttreatment changes suspected in the left anterior cindy ast. A few interstitial opacities large amount stool in the colon. IMPRESSION: 1. No suspicious uptake visualized. 2. Postsurgical changes to the breasts below background levels. 3. [facility], , 04/17/2024 8:29 AM
== END | disposition home or self-care (01) ==
LOC: RADPETMAIN 07:21
PROVIDERS: ATTEND Radiology Radiation Oncology
DX: C50.412 Malignant neoplasm of upper-outer quadrant of left female breast (principal); C77.3 Secondary and unspecified malignant neoplasm of axilla and upper limb lymph nodes; C50.411 Malignant neoplasm of upper-outer quadrant of right female breast; Z98.890 Other specified postprocedural states
CPT/HCPCS: 78815; A9552